=== PATIENT | male | born 1955 | race Caucasian/White ===

== ENCOUNTER → 2016-03-26 | Outpatient (CLI) | payer OTHER ==
[~2016-03-26] MED LIST: ALBU1AER9 INH; AMPH20TA2 PO; CHOL100010 PO; DIVA500T59 PO; FLUT0.15 INH; FLUT230A INH; GABA800T PO; LISI20TA3 PO; OXYC-57 PO; PANT40TA PO; ZINC100T2 PO
--- NOTE | 2016-03-26 10:17 | DIAGNOSTIC IMAGING REPORT ---
ABDOMEN ULTRASOUND FOR HERNIA CLINICAL HISTORY: Injury/strain of abdominal wall. Assess for hernia COMPARISON STUDY: None. FINDINGS: Real-time sonographic imaging of the left abdominal wall was performed. There is no hernia, mass, or fluid collection identified. IMPRESSION: No sonographic at the left abdominal wall. Electronically signed by: Keo Barnard M.D. 03/26/2016 10:15 AM
== END | disposition home or self-care (01) ==
LOC: C.ULTR 09:27
PROVIDERS: ATTEND Family Medicine
DX: S39.011A Strain of muscle, fascia and tendon of abdomen, initial encounter (principal); X58.XXXA Exposure to other specified factors, initial encounter

== ENCOUNTER → 2016-06-06 | Outpatient (CLI) | payer OTHER ==
[~2016-06-06] MED LIST changes: -OXYC-57 PO
--- NOTE | 2016-06-06 16:55 | DIAGNOSTIC IMAGING REPORT ---
RIGHT HAND MIN 3 VIEWS ROUTINE CLINICAL HISTORY: Right hand pain following trauma. COMPARISON: None FINDINGS: There is soft tissue swelling overlying the medial aspect of the right fifth metacarpal. Cortical irregularity with lucency of the distal shaft and head of the right fifth metacarpal is suggestive of an acute minimally displaced fracture. There is also suspected old fractures of the right fourth and fifth metacarpals. There is marked narrowing of the radiocarpal joint space with widening of the scapholunate interval. IMPRESSION: 1. Acute mildly displaced fracture of the distal shaft and head of the right fifth metacarpal. 2. Suspected old fractures of the right fourth and fifth metacarpals. 3. Marked narrowing of the radiocarpal joint space with widening of the scapholunate interval. Electronically signed by: Tod Kang M.D. 06/06/2016 4:54 PM Dictated Date/Time: 06/06/2016 4:52 PM
== END | disposition home or self-care (01) ==
LOC: C.RAD 16:29
PROVIDERS: ATTEND Family Medicine
DX: S62.326A Displaced fracture of shaft of fifth metacarpal bone, right hand, initial encounter for closed fracture (principal); X58.XXXA Exposure to other specified factors, initial encounter

== ENCOUNTER → 2016-06-14 | Outpatient (CLI) | payer OTHER ==
--- NOTE | 2016-06-14 10:54 | DIAGNOSTIC IMAGING REPORT ---
RIGHT HAND MIN 3 VIEWS CLINICAL HISTORY: RIGHT HAND FX Right trauma. Pain. COMPARISON: 06/06/2016 DISCUSSION: Unchanging fracture distal aspect fifth metacarpal. Evidence for old trauma again noted. No evidence of dislocation. Alignment remains anatomic. There is no evidence for soft tissue swelling. IMPRESSION: Unchanging appearance of the fracture distal fifth metacarpal. Bony alignment remains unchanged Electronically signed by: Uriel Booth M.D. 06/14/2016 10:53 AM Dictated Date/Time: 06/14/2016 10:51 AM
== END | disposition home or self-care (01) ==
LOC: C.RDSM 12:41
PROVIDERS: ATTEND Physician Assistant
DX: Z09 Encounter for follow-up examination after completed treatment for conditions other than malignant neoplasm (principal)

== ENCOUNTER → 2016-07-05 | Outpatient (CLI) | payer OTHER ==
--- NOTE | 2016-07-05 09:01 | DIAGNOSTIC IMAGING REPORT ---
RIGHT HAND MIN 3 VIEWS CLINICAL HISTORY: CLOSED FX OF RIGHT 5TH METACARPAL Right trauma. Pain. COMPARISON: 06/14/2016 DISCUSSION: Fracture distal aspect fifth metacarpal. Early periosteal reaction and callus formation. Slight increase in angulation. No evidence of dislocation. Degenerative change of all remaining osseous structures unaltered from the prior study. There is no evidence for soft tissue swelling. IMPRESSION: evidence for early healing of a fracture distal fifth metacarpal. Slight increase in angulation. Electronically signed by: Uriel Booth M.D. 07/05/2016 8:59 AM Dictated Date/Time: 07/05/2016 8:58 AM
== END | disposition home or self-care (01) ==
LOC: C.RDSM 09:00
PROVIDERS: ATTEND Physician Assistant
DX: S62.36 Nondisplaced fracture of neck of other metacarpal bone (principal); X58.XXXD Exposure to other specified factors, subsequent encounter

== ENCOUNTER → 2016-07-26 | Outpatient (CLI) | payer OTHER ==
--- NOTE | 2016-07-26 09:53 | DIAGNOSTIC IMAGING REPORT ---
RIGHT HAND MIN 3 VIEWS CLINICAL HISTORY: Right hand pain. Right fifth metacarpal fracture. COMPARISON: Right hand radiographs July 05, 2016 per FINDINGS: There has been no change in alignment of the mildly displaced and angulated fracture of the right fifth metacarpal since prior exam. Fracture line remains evident. Mild interval callus formation is noted. Intra-articular extension is noted. No additional healing fractures are noted. There is an old deformity of the right fourth metacarpal. Marked narrowing of the radiocarpal joint space is noted with widening of the scapholunate interval. This is unchanged. There may be osteopenia. IMPRESSION: No change in alignment of the healing right fifth metacarpal fracture. Electronically signed by: Tod Kang M.D. 07/26/2016 9:51 AM Dictated Date/Time: 07/26/2016 9:49 AM
== END | disposition home or self-care (01) ==
LOC: C.RDSM 14:38
PROVIDERS: ATTEND Physician Assistant
DX: S62.306D Unspecified fracture of fifth metacarpal bone, right hand, subsequent encounter for fracture with routine healing (principal); X58.XXXD Exposure to other specified factors, subsequent encounter

== ENCOUNTER → 2016-10-01 | Outpatient (CLI) | payer OTHER ==
--- NOTE | 2016-10-01 09:25 | DIAGNOSTIC IMAGING REPORT ---
RIGHT HAND MIN 3 VIEWS HISTORY:61 yearsMale[age]OSED FX OF RIGHT 5TH METACARPAL Right COMPARISON: 07/26/2016 right hand radiographs. TECHNIQUE: 3 views of the right hand. FINDINGS: There is progressive near-complete healing of the distal right fifth metacarpal. Alignment is satisfactory. The bones are moderately demineralized. 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 No acute fracture or dislocation is identified. Negative for radiopaque foreign body. IMPRESSION: Progressive near-complete healing of the previously described subacute nondisplaced distal fifth metacarpal fracture. The above report was generated using voice recognition software. It may contain grammatical, syntax or spelling errors. Electronically signed by: Boogie Barraza 10/01/2016 9:24 AM Dictated Date/Time: 10/01/2016 9:22 AM
== END | disposition home or self-care (01) ==
LOC: C.RDSM 09:15
PROVIDERS: ATTEND Physician Assistant
DX: S62.366D Nondisplaced fracture of neck of fifth metacarpal bone, right hand, subsequent encounter for fracture with routine healing (principal); X58.XXXD Exposure to other specified factors, subsequent encounter

== ENCOUNTER → 2017-02-18 | Outpatient (CLI) | payer OTHER ==
--- NOTE | 2017-02-18 10:05 | DIAGNOSTIC IMAGING REPORT ---
R FOOT MIN 3 VIEWS ROUTINE CLINICAL HISTORY: PAIN IN RIGHT HEEL pain COMPARISON: None. DISCUSSION: Moderate degenerative change first metatarsophalangeal joint. Heel spur is present. All remaining osseous structures are considered unremarkable. There is no evidence for fracture or dislocation. No abnormal periosteal reaction. There is no evidence for soft tissue swelling. IMPRESSION: 1. Small heel spur. 2. Moderate degenerative change first metatarsophalangeal joint. 3. No acute process. The above report was generated using voice recognition software. It may contain grammatical, syntax or spelling errors. Electronically signed by: Uriel Booth M.D. 02/18/2017 10:04 AM Dictated Date/Time: 02/18/2017 10:03 AM
== END | disposition home or self-care (01) ==
LOC: C.RAD1850 09:50
PROVIDERS: ATTEND Family Medicine
DX: M79.671 Pain in right foot (principal); M72.2 Plantar fascial fibromatosis

== ENCOUNTER 2020-05-31 10:26 | Inpatient (IN) ==
[2020-05-31] MEDS ORDERED: MoRPHine SULFATE 4 MG/ML 1 ML CARP\\VIAL IV STA (11:08)
[2020-05-31] MEDS ORDERED: SODIUM CHLORIDE 0.9% 1000ML 1,000 ML IV STA (11:08)
[2020-05-31] MEDS ORDERED: ONDANSETRON INJ 2 MG/ML 2 ML VIAL IV STA (11:10)
--- NOTE | 2020-05-31 11:11 | Emergency Department Note ---
ED Visit Note This patient was seen in concert with Dr. Francisco and we discussed and agreed upon the history, physical, assessment, and plan. See attending's note for details. . Resident Activity Tracking Resident Involvement: Resident Care Provided Care Provided: Adult ED
[2020-05-31] MEDS ORDERED: MoRPHine SULFATE 2 MG/ML CARP ONE (11:25)
[2020-05-31] MEDS ORDERED: AMPICILLIN/SULBACTAM SOD 3,000 MG in 0.9 % SODIUM CHLORIDE 100 ML IV STA (11:30)
--- NOTE | 2020-05-31 11:30 | Emergency Department Note ---
History of Present Illness General Chief Complaint: Abdominal Pain Stated Complaint: ABD PAIN, NAUSEA, VOMITING Time Seen by Provider: 05/31/20 10:57 Source: patient Mode of arrival: ambulatory Limitations: no limitations History of Present Illness Provider Complaint: abdominal pain Maximum Pain Intensity: 8 This is a 64-year-old male who presents to the ED with a chief complaint of abdominal pain and scrotal pain. The patient states that he had a left hydrocele [address] Sanderson in [place]. The patient states that 3 days ago he started noticing some swelling and discomfort and then subsequently currently he is complaining of abdominal pain and lower back pain. He was seen by the [facility] and sent over for evaluation. He reports associated nausea with his symptoms. Denies any vomiting. No diarrhea. No fevers. Home Medications Medication Instructions Recorded Confirmed Type albuterol sulfate 1 inh INHALATION UD PRN 10/19/19 05/31/20 History budesonide-formoterol [Symbicort] 2 puff INHALATION BID 10/19/19 05/31/20 History cholecalciferol (vitamin D3) 50 mcg PO QAM 10/19/19 05/31/20 History [Vitamin D3] diphenhydramine HCl 25 mg PO HS 10/19/19 05/31/20 History divalproex [Depakote ER] 500 mg PO HS 10/19/19 05/31/20 History flaxseed oil 1,000 mg PO QAM 10/19/19 05/31/20 History fluticasone propionate 2 spray INTRANASAL BID 10/19/19 05/31/20 History gabapentin 400 mg PO BID 10/19/19 05/31/20 History melatonin 5 mg PO HS 10/19/19 05/31/20 History pantoprazole [Protonix] 40 mg PO QAM 10/19/19 05/31/20 History trihexyphenidyl 2 mg PO HS 10/19/19 05/31/20 History zinc 50 mg PO QAM 10/19/19 05/31/20 History Kombucha 1 dose PO QAM 05/31/20 05/31/20 History cariprazine [Vraylar] 6 mg PO HS 05/31/20 05/31/20 History lisinopril 40 mg PO QAM 05/31/20 05/31/20 History psyllium husk [Metamucil] 1 tbsp PO DAILY PRN 05/31/20 05/31/20 History Allergies Allergy/AdvReac Type Severity Reaction Status Date / Time prednisone AdvReac Unknown GET Verified 05/31/20 14:17 AGGRESIVE, ANGRY Past Med/Surg History Medical History (Updated 05/31/20 @ 14:42 by Leon Francisco DO) Anxiety Asthma Bipolar disorder Fatty liver High blood pressure History of hepatitis C RESOLVED History of renal calculi KIDNEY STONE X1 History of sepsis 6 YR AGO - HAD KIDNEY STONE AT TIME AND PROSTATE INFECTION History of stomach ulcers X1 Low sodium levels CHRONIC LOW Tremor LEGS, ARMS AND HANDS...PSYCHIATRIST MANAGES TREMORS Surgical History History of arthroscopy of left knee History of carpal tunnel release of both wrists History of colonoscopy History of elbow surgery ULNAR RELEASE R &L History of tonsillectomy Social History Smoking Status: Never smoker Hx Alcohol Use: No Preferred Language: Indonesian Communication Ability: Effective 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: No Beliefs That Will Affect Care: None Current Living Situation: Spouse Feels Safe at Home: Yes Assistive Devices: Glasses Review of Systems A total of 10 systems reviewed and were otherwise negative Physical Exam Vital Signs: Vital Signs - 24 hr 05/31/20 10:35 05/31/20 12:35 05/31/20 13:54 Temperature 36.2 C L Temperature Source Temporal Artery Sc an Pulse Rate 72 Pulse Rate [Right Finger] 70 88 Respiratory Rate 20 20 20 Blood Pressure 111/76 Blood Pressure [Ri ght Arm] 158/80 H 161/93 H Blood Pressure Yodit n 87 Blood Pressure Yodit n [Right Arm] 106 115 Blood Pressure Pos ition [Right Arm] Lying Pulse Oximetry 97 97 99 Oxygen Delivery Me thod Room Air Room Air Sepsis Recent Feve r Within 48 Hours No Sepsis New/Unexpla ined Change in Men yessenia Status No Sepsis Action Take n by Nursing No Action Required Physical Exam: CONSTITUTIONAL/VITAL SIGNS: Reviewed / noted above. GENERAL: Non-toxic in appearance. INTEGUMENTARY: Warm, dry, and [place]. HEAD: Normocephalic. EYES: without scleral icterus or trauma. ENT/OROPHARYNX: clear and moist. LYMPHADENOPATHY/NECK: Is supple without lymphadenopathy or meningismus. RESPIRATORY: Lungs clear and equal. CARDIOVASCULAR: Regular rate and rhythm. GI/ABDOMEN: Soft and nontender. No organomegaly or pulsatile mass. No rebound or guarding. Normal bowel sounds. EXTREMITIES: Warm and well perfused. BACK: No CVA tenderness. NEUROLOGICAL: Intact without focal deficits. PSYCHIATRIC: normal affect. MUSCULOSKELETAL: Normally developed with good muscle tone. : There is some mild scrotal erythema. TRIAGE NURSING DOCUMENTATION REVIEWED. Course Administered Medications Discontinued Medications Sodium Chloride (Nss 1000ml) 1,000 mls @ 999 mls/hr IV .Q1H1M STA Stop: 05/31/20 12:08 Last Infusion: 05/31/20 12:40 Dose: 0 mls/hr Documented by: [id number] Admin: 05/31/20 11:38 Dose: 999 mls/hr Documented by: [id number] Ampicillin Sodium/Sulbactam Sodium 3,000 mg/ Sodium Chloride 108 mls @ 200 mls/hr IV NOW STA; Protocol Stop: 05/31/20 12:02 Last Infusion: 05/31/20 13:43 Dose: 0 mls/hr Documented by: [id number] Admin: 05/31/20 13:10 Dose: 200 mls/hr Documented by: [id number] Ioversol (Ioversol 100ml) 93 ml IV ONCE ONE Stop: 05/31/20 12:57 Last Admin: 05/31/20 12:56 Dose: 93 ml Documented by: [id number] Morphine Sulfate (Morphine Sulfate 4 Mg/Ml 1 Ml Carp\Vial) 2 mg IV NOW STA Stop: 05/31/20 11:09 Last Admin: 05/31/20 11:38 Dose: Not Given Documented by: [id number] Morphine Sulfate (Morphine Sulfate 2 Mg/Ml Carp) Confirm Administered Dose 2 mg .ROUTE .STK-MED ONE Stop: 05/31/20 11:26 Last Admin: 05/31/20 11:38 Dose: 2 mg Documented by: [id number] Morphine Sulfate (Morphine Sulfate 2 Mg/Ml Carp) 2 mg IV NOW STA Stop: 05/31/20 12:43 Last Admin: 05/31/20 12:45 Dose: 2 mg Documented by: [id number] Ondansetron HCl (Ondansetron Inj 2 Mg/Ml 2 Ml Vial) 4 mg IV NOW STA Stop: 05/31/20 11:11 Last Admin: 05/31/20 11:38 Dose: 4 mg Documented by: [id number] Medical Decision Making Differential Diagnosis Differential considered: pancreatitis, hepatitis, acute cholecystitis, AAA, UTI, pyelonephritis, kidney stones, appendicitis, diverticulitis, shingles, bowel obstruction, mesenteric ischemia, intussusception,hernia, testicular torsion, abscess or scrotal infection. Medical Records Attestation: I reviewed the patient's medical records. Home Medications Current Medication List: was personally reviewed by me Laboratory Data Attestation: I reviewed the patient's lab results. Result diagrams: 05/31/20 11:39 05/31/20 12:36 Lab Results 05/31/20 05/31/20 05/31/20 Range/Units 11:39 11:39 11:39 WBC 8.08 (4.8-10.8) K/uL RBC 4.27 L (4.7-6.1) M/uL Hgb 14.1 (14.0-18.0) g/dL Hct 37.8 L (42-52) % MCV 88.5 (80-100) fL MCH 33.0 (25-34) pg MCHC 37.3 H (32-36) g/dL Plt Count 167 (130-400) K/uL Immature Gran % (Auto) 0.4 % Neut % (Auto) 64.8 % Lymph % (Auto) 24.4 % [place] % (Auto) 9.8 % Eos % (Auto) 0.6 % Baso % (Auto) 0.0 % Neut # (Auto) 5.24 (1.4-6.5) K/uL Lymph # (Auto) 1.97 (1.2-3.4) K/uL [place] # (Auto) 0.79 H (0.11-0.59) K/uL Eos # (Auto) 0.05 (0-0.5) K/uL Baso # (Auto) 0.00 (0-0.2) K/uL Immature Gran # (Auto) 0.03 H (0.00-0.02) K/uL RBC Morphology Unremarkable PT 10.3 (9.0-12.0) Seconds INR 1.0 (0.9-1.1) Sodium 116 L* (136-145) mmol/L Potassium (3.5-5.1) mmol/L Chloride 82 L (98-107) mmol/L Carbon Dioxide 26 (21-32) mmol/L Anion Gap 9.0 (3-11) BUN 14 (7-18) mg/dl Creatinine 0.82 (0.6-1.4) mg/dl Est Cr Clr Drug Dosing 105.0 ml/min Est GFR ( Amer) 109.1 Est GFR (Non-Af Amer) 94.1 BUN/Creatinine Ratio 17.3 (10-20) Glucose 94 (70-99) mg/dl Osmolality (280-300) mOsm/kg Calcium 9.7 (8.5-10.1) mg/dl Total Bilirubin 0.9 (0.2-1) mg/dl AST (15-37) U/L ALT 28 (12-78) U/L Alkaline Phosphatase 50 (45-117) U/L Total Protein 7.7 (6.4-8.2) gm/dl Albumin 4.4 (3.4-5.0) gm/dl Globulin 3.3 (2.5-4.0) gm/dl Albumin/Globulin Ratio 1.4 (0.9-2) Lipase 110 (73-393) U/L TSH (0.300-4.500) uIu/ml Urine Color Urine Appearance (Clear) Urine pH (4.5-7.5) Ur Specific [place] (1.000-1.030) Urine Protein (Negative) Urine Glucose (UA) (Negative) Urine Ketones (Negative) Urine Blood (Negative) Urine Nitrite (Negative) Urine Bilirubin (Negative) Urine Urobilinogen (Negative) Ur Leukocyte Esterase (Negative) Urine Osmolality (500-800) mOsm/kg Ur Random Sodium mmol/L COVID-19 Eval Order SARS-CoV-2, RNA, NAAT (NEGATIVE) 05/31/20 05/31/20 05/31/20 Range/Units 12:30 12:30 12:30 WBC (4.8-10.8) K/uL RBC (4.7-6.1) M/uL Hgb (14.0-18.0) g/dL Hct (42-52) % MCV (80-100) fL MCH (25-34) pg MCHC (32-36) g/dL Plt Count (130-400) K/uL Immature Gran % (Auto) % Neut % (Auto) % Lymph % (Auto) % [place] % (Auto) % Eos % (Auto) % Baso % (Auto) % Neut # (Auto) (1.4-6.5) K/uL Lymph # (Auto) (1.2-3.4) K/uL [place] # (Auto) (0.11-0.59) K/uL Eos # (Auto) (0-0.5) K/uL Baso # (Auto) (0-0.2) K/uL Immature Gran # (Auto) (0.00-0.02) K/uL RBC Morphology PT (9.0-12.0) Seconds INR (0.9-1.1) Sodium (136-145) mmol/L Potassium (3.5-5.1) mmol/L Chloride (98-107) mmol/L Carbon Dioxide (21-32) mmol/L Anion Gap (3-11) BUN (7-18) mg/dl Creatinine (0.6-1.4) mg/dl Est Cr Clr Drug Dosing ml/min Est GFR ( Amer) Est GFR (Non-Af Amer) BUN/Creatinine Ratio (10-20) Glucose (70-99) mg/dl Osmolality (280-300) mOsm/kg Calcium (8.5-10.1) mg/dl Total Bilirubin (0.2-1) mg/dl AST (15-37) U/L ALT (12-78) U/L Alkaline Phosphatase (45-117) U/L Total Protein (6.4-8.2) gm/dl Albumin (3.4-5.0) gm/dl Globulin (2.5-4.0) gm/dl Albumin/Globulin Ratio (0.9-2) Lipase (73-393) U/L TSH (0.300-4.500) uIu/ml Urine Color Yellow Urine Appearance Clear (Clear) Urine pH 8.5 H (4.5-7.5) Ur Specific [place] 1.006 (1.000-1.030) Urine Protein Negative (Negative) Urine Glucose (UA) Negative (Negative) Urine Ketones Negative (Negative) Urine Blood Negative (Negative) Urine Nitrite Negative (Negative) Urine Bilirubin Negative (Negative) Urine Urobilinogen Negative (Negative) Ur Leukocyte Esterase Negative (Negative) Urine Osmolality 182 L (500-800) mOsm/kg Ur Random Sodium 57 mmol/L COVID-19 Eval Order SARS-CoV-2, RNA, NAAT (NEGATIVE) 05/31/20 05/31/20 05/31/20 Range/Units 12:36 12:36 12:36 WBC (4.8-10.8) K/uL RBC (4.7-6.1) M/uL Hgb (14.0-18.0) g/dL Hct (42-52) % MCV (80-100) fL MCH (25-34) pg MCHC (32-36) g/dL Plt Count (130-400) K/uL Immature Gran % (Auto) % Neut % (Auto) % Lymph % (Auto) % [place] % (Auto) % Eos % (Auto) % Baso % (Auto) % Neut # (Auto) (1.4-6.5) K/uL Lymph # (Auto) (1.2-3.4) K/uL [place] # (Auto) (0.11-0.59) K/uL Eos # (Auto) (0-0.5) K/uL Baso # (Auto) (0-0.2) K/uL Immature Gran # (Auto) (0.00-0.02) K/uL RBC Morphology PT (9.0-12.0) Seconds INR (0.9-1.1) Sodium 119 L* (136-145) mmol/L Potassium 3.0 L (3.5-5.1) mmol/L Chloride (98-107) mmol/L Carbon Dioxide (21-32) mmol/L Anion Gap (3-11) BUN (7-18) mg/dl Creatinine (0.6-1.4) mg/dl Est Cr Clr Drug Dosing ml/min Est GFR ( Amer) Est GFR (Non-Af Amer) BUN/Creatinine Ratio (10-20) Glucose (70-99) mg/dl Osmolality 252 L (280-300) mOsm/kg Calcium (8.5-10.1) mg/dl Total Bilirubin (0.2-1) mg/dl AST 27 (15-37) U/L ALT (12-78) U/L Alkaline Phosphatase (45-117) U/L Total Protein (6.4-8.2) gm/dl Albumin (3.4-5.0) gm/dl Globulin (2.5-4.0) gm/dl Albumin/Globulin Ratio (0.9-2) Lipase (73-393) U/L TSH 1.220 (0.300-4.500) uIu/ml Urine Color Urine Appearance (Clear) Urine pH (4.5-7.5) Ur Specific [place] (1.000-1.030) Urine Protein (Negative) Urine Glucose (UA) (Negative) Urine Ketones (Negative) Urine Blood (Negative) Urine Nitrite (Negative) Urine Bilirubin (Negative) Urine Urobilinogen (Negative) Ur Leukocyte Esterase (Negative) Urine Osmolality (500-800) mOsm/kg Ur Random Sodium mmol/L COVID-19 Eval Order SARS-CoV-2, RNA, NAAT (NEGATIVE) 05/31/20 05/31/20 Range/Units 13:54 13:54 WBC (4.8-10.8) K/uL RBC (4.7-6.1) M/uL Hgb (14.0-18.0) g/dL Hct (42-52) % MCV (80-100) fL MCH (25-34) pg MCHC (32-36) g/dL Plt Count (130-400) K/uL Immature Gran % (Auto) % Neut % (Auto) % Lymph % (Auto) % [place] % (Auto) % Eos % (Auto) % Baso % (Auto) % Neut # (Auto) (1.4-6.5) K/uL Lymph # (Auto) (1.2-3.4) K/uL [place] # (Auto) (0.11-0.59) K/uL Eos # (Auto) (0-0.5) K/uL Baso # (Auto) (0-0.2) K/uL Immature Gran # (Auto) (0.00-0.02) K/uL RBC Morphology PT (9.0-12.0) Seconds INR (0.9-1.1) Sodium (136-145) mmol/L Potassium (3.5-5.1) mmol/L Chloride (98-107) mmol/L Carbon Dioxide (21-32) mmol/L Anion Gap (3-11) BUN (7-18) mg/dl Creatinine (0.6-1.4) mg/dl Est Cr Clr Drug Dosing ml/min Est GFR ( Amer) Est GFR (Non-Af Amer) BUN/Creatinine Ratio (10-20) Glucose (70-99) mg/dl Osmolality (280-300) mOsm/kg Calcium (8.5-10.1) mg/dl Total Bilirubin (0.2-1) mg/dl AST (15-37) U/L ALT (12-78) U/L Alkaline Phosphatase (45-117) U/L Total Protein (6.4-8.2) gm/dl Albumin (3.4-5.0) gm/dl Globulin (2.5-4.0) gm/dl Albumin/Globulin Ratio (0.9-2) Lipase (73-393) U/L TSH (0.300-4.500) uIu/ml Urine Color Urine Appearance (Clear) Urine pH (4.5-7.5) Ur Specific [place] (1.000-1.030) Urine Protein (Negative) Urine Glucose (UA) (Negative) Urine Ketones (Negative) Urine Blood (Negative) Urine Nitrite (Negative) Urine Bilirubin (Negative) Urine Urobilinogen (Negative) Ur Leukocyte Esterase (Negative) Urine Osmolality (500-800) mOsm/kg Ur Random Sodium mmol/L COVID-19 Eval Order Covid19 IDNow [facility] SARS-CoV-2, RNA, NAAT NEGATIVE (NEGATIVE) Imaging Data Radiologist's Impression: Scrotal ultrasound:IMPRESSION: 1. Septated left-sided hydrocele has decreased in size from comparison. 2. Mild asymmetric hyperemia of the left testicle is concerning for orchitis. 3. Scrotal wall edema is likely on a postsurgical basis. Abdominal and pelvic CT:IMPRESSION: 1. A slightly thick-walled 4 cm left-sided hydrocele. This is better appreciated on the same day scrotal ultrasound. 2. Mildly distended bladder. No hydronephrosis. 3. No bowel wall thickening or obstruction. 4. Normal appendix. MDM Narrative This is a 64-year-old male who presents with scrotal discomfort as well as some generalized abdominal discomfort. His physical exam did not reveal any significant abdominal tenderness. He has associated nausea. His scrotum does show some postsurgical changes as well as some scrotal erythema as well as some mild scrotal edema. The patient was given some IV fluids and IV morphine. He states that his drove him here. The patient's sodium was low at 116, recheck was 119. His scrotal ultrasound as well as CT scan of the abdomen pelvis as noted above. There might be findings to suggest a orchitis and scrotal edema. His CBC was unremarkable. Serum osmolality was low. The patient was given some IV fluids upfront. He was given IV Zofran and IV morphine. He was given IV Unasyn for his scrotal infection. He will be seen by the hospitalist for further evaluation and care. Impression & Plan Acute hyponatremia, Acute orchitis Discharge Plan Visit Data Chief Complaint: Abdominal Pain Stated Complaint: ABD PAIN, NAUSEA, VOMITING ED Provider: Leon Francisco Discharge Problem: Acute hyponatremia, Acute orchitis Patient Disposition: Being Evaluated by Hospitalist Forms Stand Alone Forms: [facility], Virtual Emergency Department, Important Visit Information Prescriptions Prescriptions: No Action gabapentin 400 mg Capsule 400 mg PO BID RF: 0 flaxseed oil 1,000 mg Capsule 1,000 mg PO QAM RF: 0 pantoprazole [Protonix] 40 mg Tablet,Delayed Release (Dr/Ec) 40 mg PO QAM RF: 0 diphenhydramine HCl 25 mg Tablet 25 mg PO HS RF: 0 divalproex [Depakote ER] 500 mg Tablet Extended Release 24 Hr 500 mg PO HS RF: 0 zinc 50 mg Tablet 50 mg PO QAM RF: 0 albuterol sulfate 90 mcg/actuation Hfa Aerosol Inhaler 1 inh INHALATION UD PRN (Reason: ASTHMA) RF: 0 trihexyphenidyl 2 mg Tablet 2 mg PO HS RF: 0 fluticasone propionate 50 mcg/actuation Stephen,Suspension 2 spray INTRANASAL BID RF: 0 budesonide-formoterol [Symbicort] 160-4.5 mcg/actuation Hfa Aerosol Inhaler 2 puff INHALATION BID RF: 0 cholecalciferol (vitamin D3) [Vitamin D3] 50 mcg (2,000 unit) Capsule 50 mcg PO QAM RF: 0 melatonin 5 mg Capsule 5 mg PO HS RF: 0 lisinopril 40 mg tablet 40 mg PO QAM RF: 0 Metamucil 3.4 gram/5.4 gram Powder 1 tbsp PO DAILY PRN (Reason: GASTROINTESTINAL SYMPTOMS) RF: 0 Vraylar 6 mg capsule 6 mg PO HS RF: 0 Kombucha 1 dose PO QAM RF: 0 Referrals Referrals: Jarett Holley [Primary Care Provider] -
[2020-05-31 12:00] LABS: Prothrombin Time 10.3 Seconds (9.0-12.0)
[2020-05-31 12:16] LABS: Albumin Globulin Ratio 1.4 (0.9-2); Albumin Level 4.4 gm/dl (3.4-5.0); BUN Creatinine Ratio 17.3 (10-20); Bilirubin,Total 0.9 mg/dl (0.2-1); Calcium 9.7 mg/dl (8.5-10.1); Est GFR (African American) 109.1; Est GFR (Non-African American) 94.1; Globulin 3.3 gm/dl (2.5-4.0); Total Protein 7.7 gm/dl (6.4-8.2)
[2020-05-31] MEDS ORDERED: MoRPHine SULFATE 2 MG/ML CARP IV STA (12:42)
[2020-05-31 12:44] LABS: Appearance Urine Clear (Clear); Bilirubin Urine Negative (Negative); Blood Urine Negative (Negative); Color Urine Yellow; Glucose Urine UA Negative (Negative); Ketones Urine Negative (Negative); Leukocyte Esterase Urine Negative (Negative); Nitrite Urine Negative (Negative); Protein Urine Negative (Negative); Specific Gravity Urine 1.006 (1.000-1.030); Urobilinogen Urine Negative (Negative); pH Urine 8.5 (4.5-7.5)
--- NOTE | 2020-05-31 12:52 | Ultrasound Report ---
US scrotum/testicle CLINICAL HISTORY: 64 years-old Male with s/p left hydrocele removal, scrotal redness. Acute pain and swelling of the left scrotum COMPARISON STUDY: Scrotal ultrasound 02/22/2020 TECHNIQUE: Real-time, grayscale, and color Doppler sonography of the testes and scrotum is performed. Images are reviewed in the transverse and longitudinal planes. FINDINGS: RIGHT HEMISCROTUM: The right testis measures 4.4 x 3.0 x 2.2 cm and the parenchyma appears unremarkab le. No intratesticular mass is seen. Normal-appearing arterial inflow is present within the right jay ticle. The right epididymal head appears normal. No varicocele or hydrocele is identified. LEFT HEMISCROTUM: The left testis measures 3.8 x 2.3 x 2.8 cm. No intratesticular mass is seen. Arter ial inflow is documented to the left testicle. The left testicle is mildly hyperemic compared to the right. The left epididymal head appears normal. No varicocele. Septated hydrocele measures approximat [place] 4.6 x 2.5 x 3.9 cm, decreased in size from comparison where it measured approximately 10.1 x 6.2 x 6.6 cm. Subcutaneous edema with skin thickening is noted within the scrotum at the area of reported incision. No incisional fluid collection. IMPRESSION: 1. Septated left-sided hydrocele has decreased in size from comparison. 2. Mild asymmetric hyperemia of the left testicle is concerning for orchitis. 3. Scrotal wall edema is likely on a postsurgical basis. ACT 112: Negative or not required by law. The above report was generated using voice recognition software. It may contain grammatical, syntax o r spelling errors. Electronically signed by: Boogie Barraza M.D. 05/31/2020 12:50 PM
[2020-05-31] MEDS ORDERED: OPTIRAY 320 100ml IV ONE (12:56)
[2020-05-31 13:12] LABS: Eosinophils # (auto) 0.05 K/uL (0-0.5); Eosinophils % (auto) 0.6 %; Hematocrit (blood only) 37.8 % (42-52); Hemoglobin 14.1 g/dL (14.0-18.0); Immature Granulocytes # (auto) 0.03 K/uL (0.00-0.02); Immature Granulocytes % (auto) 0.4 %; Lymphocytes # (auto) 1.97 K/uL (1.2-3.4); Lymphocytes % (auto) 24.4 %; Mean Corpuscular Hgb Conc 37.3 g/dL (32-36); Mean Corpuscular Volume 88.5 fL (80-100); Monocytes # (auto) 0.79 K/uL (0.11-0.59); Monocytes % (auto) 9.8 %; Neutrophils # (auto) 5.24 K/uL (1.4-6.5); Neutrophils % (auto) 64.8 %; Platelet Count 167 K/uL (130-400); RBC Morphology Unremarkable; Red Blood Count 4.27 M/uL (4.7-6.1); White Blood Count 8.08 K/uL (4.8-10.8)
--- NOTE | 2020-05-31 13:15 | CT Scan Report ---
ABDOMEN AND PELVIS CT WITH IV CONTRAST CT DOSE: 740.38 mGy.cm HISTORY: Bilateral flank pain. scrotal pain/abd pain, s/p hydrocele repair TECHNIQUE: Multiaxial CT images of the abdomen and pelvis were performed following the use of intrave nous contrast. A dose lowering technique was utilized adhering to the principles of ALARA. COMPARISON STUDY: Scrotal ultrasound 05/31/2020. FINDINGS: The lung bases are clear. No pneumoperitoneum. No pneumatosis. No suspicious lytic or blast ic osseous lesions. There is a trace right hydrocele. There is a slightly thick-walled left hydrocele measuring 4 cm. This is better appreciated on the same day scrotal ultrasound. Small nodular focus o f enhancement within the fundus of the gallbladder. This favors a small focus of edema pneumatosis. T he main portal vein is patent. No hepatic or splenic masses. The adrenal glands are unremarkable. Nor mal pancreas. No hydronephrosis. A few subcentimeter hypodense lesions within the kidneys with the la rgest in the right upper pole measuring 12 mm. These favor cysts. No retroperitoneal lymphadenopathy. Normal caliber abdominal aorta. No pelvic lymphadenopathy. The bladder is mildly distended. No bladd er wall thickening. The prostate gland is normal in size. There is mild bilateral perinephric edema. This is likely chronic. Colonic diverticulosis. No evidence for acute diverticulitis. There is modera te well-formed stool seen within the colon. Questionable thickening at the proximal descending colon is likely due to underdistention. Otherwise, no definite bowel wall thickening or obstruction. Normal appendix. IMPRESSION: 1. A slightly thick-walled 4 cm left-sided hydrocele. This is better appreciated on the same day scro yessenia ultrasound. 2. Mildly distended bladder. No hydronephrosis. 3. No bowel wall thickening or obstruction. 4. Normal appendix. ACT 112: Negative or not required by law. Electronically signed by: Keo Barnard M.D. 05/31/2020 1:13 PM
[2020-05-31] MEDS ORDERED: POTASSIUM CHLORIDE / WTR 10 MEQ/100 ML PLCT IV STA (15:18)
[2020-05-31] MEDS ORDERED: POTASSIUM CHLORIDE CRTAB 20 MEQ TABCR PO STA ×2 (15:18→21:29)
--- NOTE | 2020-05-31 15:24 | History & Physical Report ---
Date of Service May 31, 2020 Assessment & Plan (1) Acute hyponatremia: With acute on chronic hyponatremia. Baseline sodium is 125-130 as per patient report. This is thought to be secondary to chronic psychiatric medications and is managed closely by his psychiatrist. With sodium of 116 on arrival here with symptoms of increased agitation, mild confusion, headaches. This is secondary to dehydration from nausea and vomiting and hypovolemia over the last several days with being ill due to his orchitis. There also may be some component of SIADH that is acute due to nausea and pain. -Admit to PCU -Follow serial BMP He already received 1 L of normal saline-we will give another 1 L of normal saline and follow BMP every 4 hours -His nausea and vomiting are improved now-he is encouraged to eat and drink as tolerated Okay to continue usual home medications (2) Acute orchitis: With recent left hydrocele removal surgery 2 weeks ago with [facility] urology With developing orchitis and scrotal cellulitis He is afebrile here and no leukocytosis, no evidence of sepsis, but with severe scrotal pain Continue IV morphine as needed -Continue IV Unasyn Consult urology Scrotal support and ice packs (3) Nausea & vomiting: Likely secondary to pain from orchitis Zofran as needed IV fluids (4) Hypokalemia: Likely secondary to GI losses and dehydration Replace with p.o. and IV potassium chloride Follow BMP (5) Schizoaffective disorder: Continue home medications of Depakote, gabapentin, Vraylar, melatonin for sleep, and follow-up with psychiatry as usual as an outpatient (6) Tremor: Secondary to his Vraylor Treated with trihexyphenidyl (7) History of stomach ulcers: Continue PPI, no acute issues (8) High blood pressure: Blood pressures are controlled Continue home lisinopril (9) Asthma: No acute issues Continue home Symbicort and albuterol as needed (10) Anxiety: Medications as above (11) DVT prophylaxis: Lovenox SQ Disposition-admit to PCU Full code History of Present Illness Chief Complaint: Scrotal and abdominal pain Primary Care Provider: Jarett Holley This patient is a 64-year-old male with a history of hyponatremia, schizoaffective disorder, severe anxiety and depression, asthma, HTN, PUD, secondary tremor, kidney stones, and hepatitis C treated successfully with [facility], who had a recent left hydrocele repair 2 weeks ago. He presented to the ER today with 5 days of progressively worsening scrotal pain radiating up to his left lower abdomen, with scrotal redness, with associated nausea and vomiting. He has been urinating like normal. He has not been able to eat in many days and not drinking much. He then vomited both yesterday and today. He called his urologist office who suggested that he present to the emergency room. He did not have any documented fevers at home but did feel like he was having chills. He denies any diarrhea. He has been having headaches as well and has been a little bit more confused as per both patient and his . He has had trouble focusing the last 2 days and his reports he was quite agitated at times. He reports a long history of hyponatremia and has a baseline sodium he says of 125-130. His sodium upon arrival here was 116. He had imaging studies of the abdomen and pelvis with CT scan as well as scrotal ultrasound which did show evidence of left orchitis and scrotal wall edema and a decreased size in left hydrocele compared to previous. There was no bowel wall thickening or obstruction. In the ER, he was having significant pain which was much improved by the time I saw him after receiving IV morphine x2 doses. His sodium also had improved to 119 after 1 liter of normal saline. He was also given a dose of IV Unasyn. His Covid test was negative. He will be admitted for hyponatremia, and orchitis. Allergies Allergy/AdvReac Type Severity Reaction Status Date / Time prednisone AdvReac Unknown GET Verified 05/31/20 14:17 AGGRESIVE, ANGRY Home Medications Medication Instructions Recorded Confirmed Type albuterol sulfate 1 inh INHALATION UD PRN 10/19/19 05/31/20 History budesonide-formoterol [Symbicort] 2 puff INHALATION BID 10/19/19 05/31/20 History cholecalciferol (vitamin D3) 50 mcg PO QAM 10/19/19 05/31/20 History [Vitamin D3] diphenhydramine HCl 25 mg PO HS 10/19/19 05/31/20 History divalproex [Depakote ER] 500 mg PO HS 10/19/19 05/31/20 History flaxseed oil 1,000 mg PO QAM 10/19/19 05/31/20 History fluticasone propionate 2 spray INTRANASAL BID 10/19/19 05/31/20 History gabapentin 400 mg PO BID 10/19/19 05/31/20 History melatonin 5 mg PO HS 10/19/19 05/31/20 History pantoprazole [Protonix] 40 mg PO QAM 10/19/19 05/31/20 History trihexyphenidyl 2 mg PO HS 10/19/19 05/31/20 History zinc 50 mg PO QAM 10/19/19 05/31/20 History Kombucha 1 dose PO QAM 05/31/20 05/31/20 History cariprazine [Vraylar] 6 mg PO HS 05/31/20 05/31/20 History lisinopril 40 mg PO QAM 05/31/20 05/31/20 History psyllium husk [Metamucil] 1 tbsp PO DAILY PRN 05/31/20 05/31/20 History Past Med/Surg History Medical History Anxiety Asthma Bipolar disorder Fatty liver High blood pressure History of hepatitis C RESOLVED History of renal calculi KIDNEY STONE X1 History of sepsis 6 YR AGO - HAD KIDNEY STONE AT TIME AND PROSTATE INFECTION History of stomach ulcers X1 Low sodium levels CHRONIC LOW Schizoaffective disorder Tremor LEGS, ARMS AND HANDS...PSYCHIATRIST MANAGES TREMORS Surgical History History of arthroscopy of left knee History of carpal tunnel release of both wrists History of colonoscopy History of elbow surgery ULNAR RELEASE R &L History of tonsillectomy Family History Father Migraine Mother Dementia Social History Smoking Status: Never smoker Do You Dip or Chew Tobacco: No; Hx Alcohol Use: No (History of heavy alcohol use, sober since 2009) Hx Substance Use: No Preferred Language: Bangladeshi Communication Ability: Effective Gun Stocker Required: No Beliefs That Will Affect Care: None marital status: Current Living Situation: Spouse Other Information That Helps Us Care for You: No Feels Safe at Home: Yes Safety Concerns: Feels Safe At This Time Assistive Devices: Glasses Review of Systems Review of Systems: All systems reviewed & are unremarkable except as noted in HPI & below Denies chest pain or shortness of breath No difficulty with urination Physical Exam Constitutional: WD/WN, vitals as above Eyes: PERRL, conjunctivae normal, anicteric sclerae ENMT: external ear and nose normal, oropharynx normal Neck: trachea midline, no thyromegaly Respiratory: normal respiratory effort, lungs clear to auscultation Cardiovascular: RRR, no murmur, no edema Chest (Breasts): Chest: normal inspection of chest Gastrointestinal (Abdomen): normal bowel sounds, soft, nontender, no hepatosplenomegaly Musculoskeletal: Extremities: extremities normal to inspection; no cyanosis and no clubbing Skin: + erythema (Of scrotum) Neurologic: moves all extremities and awake; no focal motor deficits Psychiatric: A+Ox3, euthymic affect Genitourinary: + scrotum abnormality (Mild edema, significant erythema throughout scrotum left greater than right); no penis abnormality Positive exquisite tenderness to palpation of the left testicle, incision on scrotum with scant amount of purulent drainage expressed Lymphatic: no lymphedema Results & Data Results & [facility] ([facility]) Vital Signs (Past 12 Hours) Vital Signs Temp Pulse Pulse Resp BP BP Pulse Ox 05/31/20 13:54 88 20 161/93 H 99 05/31/20 12:35 70 20 158/80 H 97 05/31/20 10:35 36.2 C L 72 20 111/76 97 Laboratory Results Laboratory results reviewed Diagnostic Findings US scrotum/testicle CLINICAL HISTORY: 64 years-old Male with s/p left hydrocele removal, scrotal redness. Acute pain and swelling of the left scrotum COMPARISON STUDY: Scrotal ultrasound 02/22/2020 TECHNIQUE: Real-time, grayscale, and color Doppler sonography of the testes and scrotum is performed. Images are reviewed in the transverse and longitudinal planes. FINDINGS: RIGHT HEMISCROTUM: The right testis measures 4.4 x 3.0 x 2.2 cm and the parenchyma appears unremarkable. No intratesticular mass is seen. Normal- appearing arterial inflow is present within the right testicle. The right epididymal head appears normal. No varicocele or hydrocele is identified. LEFT HEMISCROTUM: The left testis measures 3.8 x 2.3 x 2.8 cm. No intratesticular mass is seen. Arterial inflow is documented to the left testicle. The left testicle is mildly hyperemic compared to the right. The left epididymal head appears normal. No varicocele. Septated hydrocele measures approximately 4.6 x 2.5 x 3.9 cm, decreased in size from comparison where it measured approximately 10.1 x 6.2 x 6.6 cm. Subcutaneous edema with skin thickening is noted within the scrotum at the area of reported incision. No incisional fluid collection. IMPRESSION: 1. Septated left-sided hydrocele has decreased in size from comparison. 2. Mild asymmetric hyperemia of the left testicle is concerning for orchitis. 3. Scrotal wall edema is likely on a postsurgical basis. ABDOMEN AND PELVIS CT WITH IV CONTRAST CT DOSE: 740.38 mGy.cm HISTORY: Bilateral flank pain. scrotal pain/abd pain, s/p hydrocele repair TECHNIQUE: Multiaxial CT images of the abdomen and pelvis were performed following the use of intravenous contrast. A dose lowering technique was utilized adhering to the principles of ALARA. COMPARISON STUDY: Scrotal ultrasound 05/31/2020. FINDINGS: The lung bases are clear. No pneumoperitoneum. No pneumatosis. No suspicious lytic or blastic osseous lesions. There is a trace right hydrocele. There is a slightly thick-walled left hydrocele measuring 4 cm. This is better appreciated on the same day scrotal ultrasound. Small nodular focus of enhancement within the fundus of the gallbladder. This favors a small focus of edema pneumatosis. The main portal vein is patent. No hepatic or splenic masses. The adrenal glands are unremarkable. Normal pancreas. No hydronephrosis. A few subcentimeter hypodense lesions within the kidneys with the largest in the right upper pole measuring 12 mm. These favor cysts. No retroperitoneal lymphadenopathy. Normal caliber abdominal aorta. No pelvic lymphadenopathy. The bladder is mildly distended. No bladder wall thickening. The prostate gland is normal in size. There is mild bilateral perinephric edema. This is likely chronic. Colonic diverticulosis. No evidence for acute diverticulitis. There is moderate well-formed stool seen within the colon. Questionable thickening at the proximal descending colon is likely due to underdistention. Otherwise, no definite bowel wall thickening or obstruction. Normal appendix. IMPRESSION: 1. A slightly thick-walled 4 cm left-sided hydrocele. This is better appreciated on the same day scrotal ultrasound. 2. Mildly distended bladder. No hydronephrosis. 3. No bowel wall thickening or obstruction. 4. Normal appendix. Code Status & VTE Plan Code Status Full code VTE Prophylaxis Plan VTE Prophylaxis will be ordered: Yes PG Care Time/CCT Total # of Minutes Spent Total Time Spent with Patient: Total time spent is greater than 50% in coordination of care (as documented) at patient's floor/unit and/or counseling patient: Coding Level of Care Code 49996 Initial Inpt Care Lvl 3 Diagnoses Acute hyponatremia E87.1 Acute orchitis N45.2 Nausea & vomiting R11.2 Hypokalemia E87.6 Schizoaffective disorder F25.9 Tremor R25.1 History of stomach ulcers Z87.19 High blood pressure I10 Asthma J45.909 Anxiety F41.9 DVT prophylaxis Z29.9
[2020-05-31] MEDS ORDERED: SODIUM CHLORIDE 0.9% 1000ML 1,000 ML IV SCH (15:30)
[2020-05-31 16:04] LABS: BUN Creatinine Ratio 12.7 (10-20); Creatinine Clr Calc Pharmacy 95.7 ml/min; Est GFR (Non-African American) 90.6
[2020-05-31] MEDS ORDERED: POLYETHYLENE (MIRALAX) 17 GM PACK PO PRN (17:18)
[2020-05-31] MEDS ORDERED: ALBUTEROL HFA 8 GM INHALER INH PRN (17:18)
[2020-05-31] MEDS ORDERED: ONDANSETRON INJ 2 MG/ML 2 ML VIAL IV PRN (17:18)
[2020-05-31] MEDS: MoRPHine SULFATE 2 MG/ML CARP IV PRN ×2 (17:47→20:56)
[2020-05-31] MEDS: AMPICILLIN/SULBACTAM SOD 3,000 MG in 0.9 % SODIUM CHLORIDE 100 ML IV SCH ×2 (18:49→20:42)
--- NOTE | 2020-05-31 19:47 | Urology Consultation ---
Date of Consultation May 31, 2020 Assessment & Plan (1) Acute orchitis: Patient likely has acute orchitis on a postoperative basis. Recommend the following: The patient has arterial flow to both testicles and there is no evidence of abscess there is no indication for surgical intervention Supportive care with analgesics, scrotal elevation and support, and perhaps as needed ice packs should be employed. As patient is afebrile without leukocytosis and there is no evidence of any purulent drainage from his surgical incision there is no clear indication for antibiotics. Upon discharge patient should follow with his urologist at [facility] for further care. Remainder of plan as directed by the primary service History of Present Illness Reason for Consultation: Orchitis Attending Physician: Antoinette Hdz MD History of Present Illness This is a 64-year-old male who presented to the [facility] emergency department secondary to scrotal pain. Patient notes that approximately 2 weeks ago he underwent a left hydrocele excision by urologist at [facility]. Patient says he had greater than 250 cc of clear fluid drained at time of surgery and he did have a drain placed and was discharged home with this drain. 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 He does note that prior to removal the drain was draining some serosanguineous fluid. Following drain removal the patient was initially doing well however over the past 5 days he has noted some worsening scrotal pain, back pain, nausea, and vomiting. He notes that this is gotten pr ogressively worse to the point where it was unbearable so he presented to the emergency department. He denies any cough, fevers, shakes, chills. He denies any dysuria. He denies any drainage from his urethra. He denies any drainage from his surgical site. In the emergency department the patient did have a scrotal ultrasound which demonstrated arterial flow to both testicles. Scrotal edema was noted but this was felt to be postsurgical in nature. There is also some hyperemia noted of the left testicle concerning for colitis. He was noted to have a septated left hydrocele but this was felt to be smaller than what was noted on previous studies. Patient also underwent a CT scan of the abdomen and pelvis which did not demonstrate any findings that were not identified on the previously noted ultrasound. Labs included a Covid test which was negative. A CBC showed no leukocytosis. His hemoglobin and platelet count were noted to be normal. The patient was noted be hyponatremic and hypokalemic with levels of 116 and 3.0 respectively. His BUN and creatinine were noted to both be within normal range. Urinalysis was performed and was not indicative of infection. Since admission the patient has been given analgesics and he has been placed on empiric antibiotics. At the time of my interview he was resting comfortably in bed his pain appeared to be well controlled and he was in no distress. Allergies Allergy/AdvReac Type Severity Reaction Status Date / Time prednisone AdvReac Unknown GET Verified 05/31/20 14:17 AGGRESIVE, ANGRY Home Medications Medication Instructions Recorded Confirmed Type albuterol sulfate 1 inh INHALATION UD PRN 10/19/19 05/31/20 History budesonide-formoterol [Symbicort] 2 puff INHALATION BID 10/19/19 05/31/20 History cholecalciferol (vitamin D3) 50 mcg PO QAM 10/19/19 05/31/20 History [Vitamin D3] diphenhydramine HCl 25 mg PO HS 10/19/19 05/31/20 History divalproex [Depakote ER] 500 mg PO HS 10/19/19 05/31/20 History flaxseed oil 1,000 mg PO QAM 10/19/19 05/31/20 History fluticasone propionate 2 spray INTRANASAL BID 10/19/19 05/31/20 History gabapentin 400 mg PO BID 10/19/19 05/31/20 History melatonin 5 mg PO HS 10/19/19 05/31/20 History pantoprazole [Protonix] 40 mg PO QAM 10/19/19 05/31/20 History trihexyphenidyl 2 mg PO HS 10/19/19 05/31/20 History zinc 50 mg PO QAM 10/19/19 05/31/20 History Kombucha 1 dose PO QAM 05/31/20 05/31/20 History cariprazine [Vraylar] 6 mg PO HS 05/31/20 05/31/20 History lisinopril 40 mg PO QAM 05/31/20 05/31/20 History psyllium husk [Metamucil] 1 tbsp PO DAILY PRN 05/31/20 05/31/20 History Patient History Medical History Anxiety Asthma Bipolar disorder Fatty liver High blood pressure History of hepatitis C RESOLVED History of renal calculi KIDNEY STONE X1 History of sepsis 6 YR AGO - HAD KIDNEY STONE AT TIME AND PROSTATE INFECTION History of stomach ulcers X1 Low sodium levels CHRONIC LOW Schizoaffective disorder Tremor LEGS, ARMS AND HANDS...PSYCHIATRIST MANAGES TREMORS Surgical History History of arthroscopy of left knee History of carpal tunnel release of both wrists History of colonoscopy History of elbow surgery ULNAR RELEASE R &L History of tonsillectomy Family History Father Migraine Mother Dementia Social History Smoking Status: Never smoker Do You Dip or Chew Tobacco: No; Hx Alcohol Use: No (History of heavy alcohol use, sober since 2009) Hx Substance Use: No Preferred Language: Irish Communication Ability: Effective Skate Boarder Required: No Beliefs That Will Affect Care: None marital status: Current Living Situation: Spouse Other Information That Helps Us Care for You: No Feels Safe at Home: Yes Safety Concerns: Feels Safe At This Time Assistive Devices: Glasses Review of Systems Constitutional: no fever and no chills Respiratory: no cough and no dyspnea Cardiovascular: no chest pain Gastrointestinal: + abdominal pain (Lower abdomen), + nausea and + vomiting Genitourinary: + testicle pain (Left testicle); no dysuria, no urinary hesitancy and no penile discharge Musculoskeletal: + back pain Integumentary: no rash Physical Exam Constitutional: well developed and well nourished; no acute distress Respiratory: normal respiratory effort; no respiratory distress and no labored breathing Gastrointestinal (Abdomen): Percussion/Palpation: abdomen soft; abdomen nontender Abdomen is soft nontender nondistended. There is no pain with palpation Genitourinary: Patient's genital region was examined. The patient had a circumscribed penis. There is no discharge noted. There is mild scrotal edema with a small amount of scrotal erythema. The incision from his previously excised left hydrocele is healing well. There is no drainage or discharge. No areas of eschar were noted. I did not appreciate any masses on palpation. The patient was having minimal pain at the time of my exam and elevation of the scrotum did not provide much in the way of symptomatic relief (although he was lying in bed) Results & Data ([facility]) Vital Signs (Past 12 Hours) Vital Signs Temp Pulse Pulse Resp BP BP Pulse Ox 05/31/20 13:54 88 20 161/93 H 99 05/31/20 12:35 70 20 158/80 H 97 05/31/20 10:35 36.2 C L 72 20 111/76 97 PG Care Time/CCT Total # of Minutes Spent Total Time Spent with Patient: Total time spent is greater than 50% in coordination of care (as documented) at patient's floor/unit and/or counseling patient: Coding Level of Care Code 70587 Inpt Consult Level 3 Diagnoses Acute orchitis N45.2
[2020-05-31] MEDS: MELATONIN 3 MG TAB PO SCH (20:42)
[2020-05-31] MEDS: GABAPENTIN 400 MG CAP PO SCH (20:43)
[2020-05-31] MEDS: DIVALPROEX EXTENDED RELEASE 500 MG TAB PO SCH (20:43)
[2020-05-31] MEDS: TRIHEXYPHENIDYL HCL 2 MG TAB PO SCH (20:43)
[2020-05-31] MEDS: diphenhydrAMINE Capsule 25 MG CAP PO SCH (20:43)
[2020-05-31] MEDS: FLUTICASONE PROPIONATE NA SPR 16 GM BTL NAE SCH (20:44)
[2020-05-31] MEDS: ENOXAPARIN INJ 40 MG/0.4 ML SYR SQ SCH (20:44)
[2020-05-31 21:19] LABS: BUN Creatinine Ratio 12.8 (10-20); Calcium 8.8 mg/dl (8.5-10.1); Creatinine Clr Calc Pharmacy 87.9 ml/min; Est GFR (African American) 94.7; Est GFR (Non-African American) 81.7; Potassium 3.2 mmol/L (3.5-5.1)
[2020-06-01] MEDS: MoRPHine SULFATE 2 MG/ML CARP IV PRN ×3 (00:23→14:30)
[2020-06-01 01:33] LABS: BUN Creatinine Ratio 14.5 (10-20); Calcium 8.8 mg/dl (8.5-10.1); Creatinine Clr Calc Pharmacy 94.7 ml/min; Est GFR (African American) 103.6; Est GFR (Non-African American) 89.4; Potassium 3.5 mmol/L (3.5-5.1)
[2020-06-01] MEDS: AMPICILLIN/SULBACTAM SOD 3,000 MG in 0.9 % SODIUM CHLORIDE 100 ML IV SCH ×4 (04:50→21:18)
[2020-06-01 04:59] LABS: Basophils # (auto) 0.01 K/uL (0-0.2); Basophils % (auto) 0.2 %; Eosinophils % (auto) 1.8 %; Hematocrit (blood only) 34.9 % (42-52); Immature Granulocytes # (auto) 0.02 K/uL (0.00-0.02); Immature Granulocytes % (auto) 0.4 %; Lymphocytes # (auto) 1.86 K/uL (1.2-3.4); Lymphocytes % (auto) 33.9 %; Mean Corpuscular Hemoglobin 33.8 pg (25-34); Mean Corpuscular Hgb Conc 37.2 g/dL (32-36); Mean Corpuscular Volume 90.6 fL (80-100); Mean Platelet Volume 10.1 fL (7.4-10.4); Monocytes # (auto) 0.64 K/uL (0.11-0.59); Monocytes % (auto) 11.7 %; Neutrophils # (auto) 2.85 K/uL (1.4-6.5); Platelet Count 170 K/uL (130-400); RDW Coefficient of Variation 12.7 % (11.5-14.5); RDW Standard Deviation 41.8 fL (36.4-46.3); Red Blood Count 3.85 M/uL (4.7-6.1); White Blood Count 5.48 K/uL (4.8-10.8)
[2020-06-01 05:15] LABS: Albumin Level 3.5 gm/dl (3.4-5.0); BUN Creatinine Ratio 16.6 (10-20); Calcium 8.4 mg/dl (8.5-10.1); Creatinine Clr Calc Pharmacy 107.7 ml/min; Est GFR (African American) 110.2; Est GFR (Non-African American) 95.1; Magnesium 1.9 mg/dl (1.8-2.4); Potassium 3.9 mmol/L (3.5-5.1)
[2020-06-01 05:23] LABS: Albumin Globulin Ratio 1.4 (0.9-2); Bilirubin,Total 0.5 mg/dl (0.2-1); Globulin 2.5 gm/dl (2.5-4.0)
[2020-06-01] MEDS: CHOLECALCIFEROL 1,000 UNITS 25 MCG TAB PO SCH (08:34)
[2020-06-01] MEDS: FLUTICASONE/VILANTEROL 200/25MCG 14 PUFFS/INHALER INH SCH (08:34)
[2020-06-01] MEDS: lisinopril 40 MG TAB PO SCH (08:35)
[2020-06-01] MEDS: ZINC SULFATE 220 MG CAPSULE PO SCH (08:35)
[2020-06-01] MEDS: PANTOprazole 40 MG TAB PO SCH (08:36)
[2020-06-01] MEDS: FLUTICASONE PROPIONATE NA SPR 16 GM BTL NAE SCH ×2 (08:36→21:20)
[2020-06-01] MEDS: GABAPENTIN 400 MG CAP PO SCH ×2 (08:36→21:21)
[2020-06-01 08:40] LABS: BUN Creatinine Ratio 14.6 (10-20); Creatinine Clr Calc Pharmacy 91.1 ml/min; Est GFR (African American) 100.9; Est GFR (Non-African American) 87.1; Potassium 3.8 mmol/L (3.5-5.1)
[2020-06-01] MEDS ORDERED: NON-FORMULARY MEDICATION (Flaxseed Oil 1,000 mg Capsule) PO SCH (09:00)
--- NOTE | 2020-06-01 09:01 | Urology Progress Note ---
Date of Service June 01, 2020 Assessment & Plan (1) Acute orchitis: Hyponatremia; orchitis - s/p left hydrocelectomy several weeks ago through the [facility] - initial recovery went well before developement of pain - now with inflammatory orchitis - no outward signs of infection, but he is receiving empiric antibiotics (continue for 10 days total) and is gradually improving - I recommend continuing all supportive care including the abx - anticipate a gradual recovery over the next 10-14 days - has follow up scheduled with his [facility] [address] [facility] surgeon - please call if further questions or issues during this hospitalization Admission and Anticipated Discharge Date Admission Date: May 31, 2020 Subjective Subjectively improved this AM - started to have scrotal/left testicular/perineal pain around 1 week ago - initially with minimal pain after his surgery - no clear inciting event (no trauma, etc) to trigger the onset of pain - no fevers -no chills - skin appearance and swelling have simply been improving Na was 116 on arrival, now 130 no leukocytosis Physical Exam Physical Exam: healthy appearing scrotum with minimal swelling testis firm and edematous, but mild scrotal wall swelling no erythema incisions appropriate no drainage no crepitus or fluctuance Constitutional: well developed and well nourished Neck: neck nontender Respiratory: normal respiratory effort; no respiratory distress and does not use accessory muscles Cardiovascular: Rate/Rhythm: regular rate Vessels: radial pulses present Extremities: no edema Gastrointestinal (Abdomen): Inspection/Auscultation: abdomen normal to insp ection Percussion/Palpation: abdomen soft; abdomen nontender and no guarding Musculoskeletal: Head/Neck/Chest: normocephalic and head atraumatic Extremities: extremities normal to inspection Skin: no rashes and no lesions Trauma: no evidence of skin trauma Neurologic: awake; not obtunded Speech / Cognition: normal speech Motor/Sensory: no tremor Psychiatric: Orientation: alert and oriented x 3 Genitourinary: no CVA tenderness Lymphatic: no lymphadenopathy Results & Data ([facility]) Vital Signs (Past 12 Hours) Vital Signs Temp Pulse Resp BP Pulse Ox 06/01/20 07:58 37.0 C 67 18 159/80 H 99 06/01/20 03:23 36.9 C 63 18 127/79 97 05/31/20 23:04 37.1 C 57 L 19 134/79 97 PG Care Time/CCT Total # of Minutes Spent Total Time Spent with Patient: Total time spent is greater than 50% in coordination of care (as documented) at patient's floor/unit and/or counseling patient: Coding Level of Care Code 08753 Subseq Hosp Care Lvl 2 Diagnoses Acute orchitis N45.2
[2020-06-01 12:24] LABS: BUN Creatinine Ratio 17.2 (10-20); Calcium 9.2 mg/dl (8.5-10.1); Creatinine Clr Calc Pharmacy 98.5 ml/min; Est GFR (Non-African American) 92.3; Potassium 4.1 mmol/L (3.5-5.1)
[2020-06-01 16:12] LABS: BUN Creatinine Ratio 15.7 (10-20); Calcium 9.1 mg/dl (8.5-10.1); Creatinine Clr Calc Pharmacy 93.1 ml/min; Est GFR (African American) 103.6; Est GFR (Non-African American) 89.4; Potassium 3.9 mmol/L (3.5-5.1)
[2020-06-01 20:37] LABS: BUN Creatinine Ratio 16.6 (10-20); Calcium 9.2 mg/dl (8.5-10.1); Creatinine Clr Calc Pharmacy 97.4 ml/min; Est GFR (African American) 106.5; Est GFR (Non-African American) 91.9
[2020-06-01] MEDS: MELATONIN 3 MG TAB PO SCH (21:19)
[2020-06-01] MEDS: ENOXAPARIN INJ 40 MG/0.4 ML SYR SQ SCH (21:19)
[2020-06-01] MEDS: TRIHEXYPHENIDYL HCL 2 MG TAB PO SCH (21:21)
[2020-06-01] MEDS: diphenhydrAMINE Capsule 25 MG CAP PO SCH (21:22)
[2020-06-01] MEDS: DIVALPROEX EXTENDED RELEASE 500 MG TAB PO SCH (21:22)
[2020-06-01] MEDS: CARIPRAZINE HCL 6 MG PO SCH (21:23)
--- NOTE | 2020-06-01 21:54 | Hospitalist Progress Note ---
Date of Service June 01, 2020 Assessment & Plan (1) Acute hyponatremia: With acute on chronic hyponatremia. Baseline sodium is 125-130 as per patient report. This is thought to be secondary to chronic psychiatric medications and is managed closely by his psychiatrist. With sodium of 116 on arrival here with symptoms of increased agitation, mild confusion, headaches. This is secondary to dehydration from nausea and vomiting and hypovolemia over the last several days with being ill due to his orchitis. There also may be some component of SIADH that is acute due to nausea and pain. -Admit to PCU -Follow serial BMP Sodium has improved, will continue to monitor sodium. Okay to continue usual home medications (2) Acute orchitis: With recent left hydrocele removal surgery 2 weeks ago with [facility] urology With developing orchitis and scrotal cellulitis He is afebrile here and no leukocytosis, no evidence of sepsis, but with severe scrotal pain Continue IV morphine as needed -Continue IV Unasyn Consult urology: may consider transitioning to PO ANTIBIOTICS. Scrotal support and ice packs (3) Nausea & vomiting: Likely secondary to pain from orchitis Zofran as needed IV fluids (4) Hypokalemia: Likely secondary to GI losses and dehydration Replaced. will monitor (5) Schizoaffective disorder: Continue home medications of Depakote, gabapentin, Vraylar, melatonin for sleep, and follow-up with psychiatry as usual as an outpatient (6) Tremor: Secondary to his Vraylor Treated with trihexyphenidyl (7) History of stomach ulcers: Continue PPI, no acute issues (8) High blood pressure: Blood pressures are controlled Continue home lisinopril (9) Asthma: No acute issues Continue home Symbicort and albuterol as needed (10) Anxiety: Medications as above (11) DVT prophylaxis: Lovenox SQ Disposition-admit to PCU Full code Admission and Anticipated Discharge Date Admission Date: May 31, 2020 Subjective Patient reports feeling well. He has no new complaints. Continues to have discomfort around his testicles. Review of Systems Review of Systems: All systems reviewed & are unremarkable except as noted in HPI & below Physical Exam Physical Exam: Constitutional: WD/WN, vitals as above Eyes: PERRL, conjunctivae normal, anicteric sclerae ENMT: external ear and nose normal, oropharynx normal Neck: trachea midline, no thyromegaly Respiratory: normal respiratory effort, lungs clear to auscultation Cardiovascular: RRR, no murmur, no edema Chest (Breasts): Chest: normal inspection of chest Gastrointestinal (Abdomen): normal bowel sounds, soft, nontender, no hepatosplenomegaly Musculoskeletal: Extremities: extremities normal to inspection; no cyanosis and no clubbing Skin: + erythema (Of scrotum) Neurologic: moves all extremities and awake; no focal motor deficits Psychiatric: A+Ox3, euthymic affect Genitourinary: + scrotum abnormality (Mild edema, moderate erythema throughout scrotum left greater than right); no penis abnormality Positive exquisite tenderness to palpation of the left testicle, incision on scrotum with scant amount of purulent drainage expressed Lymphatic: no lymphedema Results & Data Results & Data ([facility]) Vital Signs (Past 12 Hours) Vital Signs Temp Pulse Resp BP Pulse Ox 06/01/20 11:03 36.7 C 63 18 102/61 94 PG Care Time/CCT Total # of Minutes Spent Total Time Spent with Patient: Total time spent is greater than 50% in coordination of care (as documented) at patient's floor/unit and/or counseling patient: Coding Level of Care Code 11871 Subseq Hosp Care Lvl 3 Diagnoses Acute hyponatremia E87.1 Acute orchitis N45.2 Nausea & vomiting R11.2 Hypokalemia E87.6 Schizoaffective disorder F25.9 Tremor R25.1 History of stomach ulcers Z87.19 High blood pressure I10 Asthma J45.909 Anxiety F41.9 DVT prophylaxis Z29.9
[2020-06-02] MEDS: AMPICILLIN/SULBACTAM SOD 3,000 MG in 0.9 % SODIUM CHLORIDE 100 ML IV SCH ×4 (04:59→21:01)
[2020-06-02] MEDS: FLUTICASONE PROPIONATE NA SPR 16 GM BTL NAE SCH ×2 (09:02→20:54)
[2020-06-02] MEDS: FLUTICASONE/VILANTEROL 200/25MCG 14 PUFFS/INHALER INH SCH (09:02)
[2020-06-02] MEDS: lisinopril 40 MG TAB PO SCH (09:03)
[2020-06-02] MEDS: GABAPENTIN 400 MG CAP PO SCH ×2 (09:03→20:55)
[2020-06-02] MEDS: ZINC SULFATE 220 MG CAPSULE PO SCH (09:03)
[2020-06-02] MEDS: PANTOprazole 40 MG TAB PO SCH (09:03)
[2020-06-02] MEDS: CHOLECALCIFEROL 1,000 UNITS 25 MCG TAB PO SCH (09:03)
[2020-06-02] MEDS: ACETAMINOPHEN 325 MG TAB PO PRN (13:42)
--- NOTE | 2020-06-02 20:37 | Hospitalist Progress Note ---
Date of Service June 02, 2020 Assessment & Plan (1) Acute hyponatremia: With acute on chronic hyponatremia. Baseline sodium is 125-130 as per patient report. This is thought to be secondary to chronic psychiatric medications and is managed closely by his psychiatrist. With sodium of 116 on arrival here with symptoms of increased agitation, mild confusion, headaches. This is secondary to dehydration from nausea and vomiting and hypovolemia over the last several days with being ill due to his orchitis. There also may be some component of SIADH that is acute due to nausea and pain. -Admit to PCU -Follow serial BMP Sodium has improved, will continue to monitor sodium. Okay to continue usual home medications At 129 which is his baseline. (2) Acute orchitis: With recent left hydrocele removal surgery 2 weeks ago with [facility] urology With developing orchitis and scrotal cellulitis He is afebrile here and no leukocytosis, no evidence of sepsis, but with severe scrotal pain Continue IV morphine as needed -Continue IV Unasyn Consult urology: may consider transitioning to PO ANTIBIOTICS at discharge. Scrotal support and ice packs (3) Nausea & vomiting: Likely secondary to pain from orchitis Zofran as needed IV fluids (4) Hypokalemia: Likely secondary to GI losses and dehydration Replaced. will monitor (5) Schizoaffective disorder: Continue home medications of Depakote, gabapentin, Vraylar, melatonin for sleep, and follow-up with psychiatry as usual as an outpatient (6) Tremor: Secondary to his Vraylor Treated with trihexyphenidyl (7) History of stomach ulcers: Continue PPI, no acute issues (8) High blood pressure: Blood pressures are controlled Continue home lisinopril (9) Asthma: No acute issues Continue home Symbicort and albuterol as needed (10) Anxiety: Medications as above (11) DVT prophylaxis: Lovenox SQ Disposition-admit to PCU Full code Admission and Anticipated Discharge Date Admission Date: May 31, 2020 Subjective Patient reports feeling better. He has no new complaints. Updated family. Review of Systems Review of Systems: All systems reviewed & are unremarkable except as noted in HPI & below Physical Exam Physical Exam: Constitutional: WD/WN, vitals as above Eyes: PERRL, conjunctivae normal, anicteric sclerae ENMT: external ear and nose normal, oropharynx normal Neck: trachea midline, no thyromegaly Respiratory: normal respiratory effort, lungs clear to auscultation Cardiovascular: RRR, no murmur, no edema Chest (Breasts): Chest: normal inspection of chest Gastrointestinal (Abdomen): normal bowel sounds, soft, nontender, no hepatosplenomegaly Musculoskeletal: Extremities: extremities normal to inspection; no cyanosis and no clubbing Skin: + erythema (Of scrotum) Neurologic: moves all extremities and awake; no focal motor deficits Psychiatric: A+Ox3, euthymic affect Genitourinary: + scrotum abnormality (Mild edema, moderate erythema throughout scrotum left greater than right); no penis abnormality Results & Data Results & Data ([facility]) Vital Signs (Past 12 Hours) Vital Signs Temp Pulse Resp BP Pulse Ox 06/02/20 15:34 37 C 74 18 171/82 H 96 PG Care Time/CCT Total # of Minutes Spent Total Time Spent with Patient: Total time spent is greater than 50% in coordination of care (as documented) at patient's floor/unit and/or counseling patient: Coding Level of Care Code 90318 Subseq Hosp Care Lvl 3 Diagnoses Acute hyponatremia E87.1 Acute orchitis N45.2 Nausea & vomiting R11.2 Hypokalemia E87.6 Schizoaffective disorder F25.9 Tremor R25.1 History of stomach ulcers Z87.19 High blood pressure I10 Asthma J45.909 Anxiety F41.9 DVT prophylaxis Z29.9 Time Spent (min) 35
[2020-06-02] MEDS: ENOXAPARIN INJ 40 MG/0.4 ML SYR SQ SCH ×2 (20:54→21:03)
[2020-06-02] MEDS: MELATONIN 3 MG TAB PO SCH (20:54)
[2020-06-02] MEDS: DIVALPROEX EXTENDED RELEASE 500 MG TAB PO SCH (20:55)
[2020-06-02] MEDS: TRIHEXYPHENIDYL HCL 2 MG TAB PO SCH (20:56)
[2020-06-02] MEDS: CARIPRAZINE HCL 6 MG PO SCH (20:56)
[2020-06-02] MEDS: diphenhydrAMINE Capsule 25 MG CAP PO SCH (20:59)
[2020-06-03] MEDS: ACETAMINOPHEN 325 MG TAB PO PRN (02:36)
[2020-06-03] MEDS: AMPICILLIN/SULBACTAM SOD 3,000 MG in 0.9 % SODIUM CHLORIDE 100 ML IV SCH ×2 (04:12→11:00)
[2020-06-03] MEDS: ZINC SULFATE 220 MG CAPSULE PO SCH (07:57)
[2020-06-03] MEDS: lisinopril 40 MG TAB PO SCH (07:58)
[2020-06-03] MEDS: PANTOprazole 40 MG TAB PO SCH (07:58)
[2020-06-03] MEDS: CHOLECALCIFEROL 1,000 UNITS 25 MCG TAB PO SCH (07:58)
[2020-06-03] MEDS: FLUTICASONE/VILANTEROL 200/25MCG 14 PUFFS/INHALER INH SCH (07:59)
[2020-06-03] MEDS: FLUTICASONE PROPIONATE NA SPR 16 GM BTL NAE SCH (07:59)
[2020-06-03] MEDS: GABAPENTIN 400 MG CAP PO SCH (07:59)
--- NOTE | 2020-06-09 22:15 | Discharge Summary ---
Date of Service June 03, 2020 Admission HPI Per Admitting Provider This patient is a 64-year-old male with a history of hyponatremia, schizoaffective disorder, severe anxiety and depression, asthma, HTN, PUD, secondary tremor, kidney stones, and hepatitis C treated successfully with Marquis rvoni, who had a recent left hydrocele repair 2 weeks ago. He presented to the ER today with 5 days of progressively worsening scrotal pain radiating up to his left lower abdomen, with scrotal redness, with associated nausea and vomiting. He has been urinating like normal. He has not been able to eat in many days and not drinking much. He then vomited both yesterday and today. He called his rologist office who suggested that he present to the emergency room. He did not have any documented fevers at home but did feel like he was having chills. He denies any diarrhea. He has been having headaches as well and has been a little bit more confused as per both patient and his . He has had trouble focusing the last 2 days and his reports he was quite agitated at times. He reports a long history of hyponatremia and has a baseline sodium he says of 125-130. His sodium upon arrival here was 116. He had imaging studies of the abdomen and pelvis with CT scan as well as scrotal ultrasound which did show evidence of left orchitis and scrotal wall edema and a decreased size in left hydrocele compared to previous. There was no bowel wall thickening or obstruction. In the ER, he was having significant pain which was much improved by the time I saw him after receiving IV morphine x2 doses. His sodium also had improved to 119 after 1 liter of normal saline. He was also given a dose of IV Unasyn. His Covid test was negative. He will be admitted for hyponatremia, and orchitis. Principal Diagnosis acute orchitis Discharge Exam Constitutional: WD/WN, vitals as above Eyes: PERRL, conjunctivae normal, anicteric sclerae ENMT: external ear and nose normal, oropharynx normal Neck: trachea midline, no thyromegaly Respiratory: normal respiratory effort, lungs clear to auscultation Cardiovascular: RRR, no murmur, no edema Chest (Breasts): Chest: normal inspection of chest Gastrointestinal (Abdomen): normal bowel sounds, soft, nontender, no hepatosplenomegaly Musculoskeletal: Extremities: extremities normal to inspection; no cyanosis and no clubbing Skin: + decreased erythema (Of scrotum) Neurologic: moves all extremities and awake; no focal motor deficits Psychiatric: A+Ox3, euthymic affect Genitourinary: + scrotum abnormality (Mild edema, moderate erythema throughout scrotum left greater than right); no penis abnormality Discharge Data Allergies Allergy/AdvReac Type Severity Reaction Status Date / Time prednisone AdvReac Unknown GET Verified 05/31/20 14:17 AGGRESIVE, ANGRY Consultations 05/31/20 14:03 ED Decision to Admit Stat 05/31/20 15:18 Consult Urology Routine Ordered Studies 05/31/20 11:08 CT abd pelvis IV con only Stat 05/31/20 11:10 US scrotum/testicle Stat Hospital Course (1) Acute hyponatremia: With acute on chronic hyponatremia. Baseline sodium is 125-130 as per patient report. This is thought to be secondary to chronic psychiatric medications and is managed closely by his psychiatrist. With sodium of 116 on arrival here with symptoms of increased agitation, mild confusion, headaches. This is secondary to dehydration from nausea and vomiting and hypovolemia over the last several days with being ill due to his orchitis. There also may be some component of SIADH that is acute due to nausea and pain. -Admit to PCU Sodium has improved, at his baseline. Okay to continue usual home medications (2) Acute orchitis: With recent left hydrocele removal surgery 2 weeks ago with [facility] urology With developing orchitis and scrotal cellulitis He is afebrile here and no leukocytosis, no evidence of sepsis, but with severe scrotal pain Continue IV morphine as needed -Continue IV Unasyn Consult urology: may consider transitioning to PO ANTIBIOTICS at discharge. will discharge on doxycycline (3) Nausea & vomiting: Likely secondary to pain from orchitis Zofran as needed IV fluids (4) Hypokalemia: Likely secondary to GI losses and dehydration Replaced. will monitor (5) Schizoaffective disorder: Continue home medications of Depakote, gabapentin, Vraylar, melatonin for sleep, and follow-up with psychiatry as usual as an outpatient (6) Tremor: Secondary to his Vraylor Treated with trihexyphenidyl (7) History of stomach ulcers: Continue PPI, no acute issues (8) High blood pressure: Blood pressures are controlled Continue home lisinopril (9) Asthma: No acute issues Continue home Symbicort and albuterol as needed (10) Anxiety: Medications as above (11) DVT prophylaxis: Lovenox SQ Total Time Total Time Spent Total Time Spent (In Minutes): 32 Total Time Includes: Examination of the Patient, Discharge Planning and Medication Reconciliation Discharge Plan Discharge Items Patient Disposition: Home - Self-Care Reason For Visit: Orchitis, Hyponatremia Discharge Diagnosis: orchitis Activity: Resume your previous activity Non-emergency contact: Primary Care Provider Call non-emergency contact if: you have any medication questions Follow-up/Referrals: Jarett Holley [Primary Care Provider] - Diet: Regular Addtl Attending Provider Instructions: You have been hospitalized for an acute medical problem. During your stay at [facility], we have made an effort to correct the problem that brought you to the hospital while keeping you as comfortable as possible. Medications were used to bring your condition under control and your discharge instructions will include directions for any medications you should take after leaving the hospital. Please make sure you see your Primary Care Provider as part of your follow up plan. Followup with urology as an outpatient Followup with PCP in 1-2 weeks. hold zinc until antibiotic is completed Pending Studies at Discharge: No Stand-Alone Forms: [facility], Smoking Cessation Medications and DC Order Prescriptions: New doxycycline hyclate 100 mg capsule 100 mg PO BID 7 Days Qty: 14 RF: 0 Continued gabapentin 400 mg Capsule 400 mg PO BID RF: 0 flaxseed oil 1,000 mg Capsule 1,000 mg PO QAM RF: 0 pantoprazole [Protonix] 40 mg Tablet,Delayed Release (Dr/Ec) 40 mg PO QAM RF: 0 diphenhydramine HCl 25 mg Tablet 25 mg PO HS RF: 0 divalproex [Depakote ER] 500 mg Tablet Extended Release 24 Hr 500 mg PO HS RF: 0 albuterol sulfate 90 mcg/actuation Hfa Aerosol Inhaler 1 inh INHALATION UD PRN (Reason: ASTHMA) RF: 0 trihexyphenidyl 2 mg Tablet 2 mg PO HS RF: 0 fluticasone propionate 50 mcg/actuation [place],Suspension 2 spray INTRANASAL BID RF: 0 budesonide-formoterol [Symbicort] 160-4.5 mcg/actuation Hfa Aerosol Inhaler 2 puff INHALATION BID RF: 0 cholecalciferol (vitamin D3) [Vitamin D3] 50 mcg (2,000 unit) Capsule 50 mcg PO QAM RF: 0 melatonin 5 mg Capsule 5 mg PO HS RF: 0 lisinopril 40 mg tablet 40 mg PO QAM RF: 0 Metamucil 3.4 gram/5.4 gram Powder 1 tbsp PO DAILY PRN (Reason: GASTROINTESTINAL SYMPTOMS) RF: 0 Vraylar 6 mg capsule 6 mg PO HS RF: 0 Kombucha 1 dose PO QAM RF: 0 Discontinued zinc 50 mg Tablet 50 mg PO QAM RF: 0 Discharge Orders: Discharge Order (Routine); Ordered 06/03/20 Ordered By: River Chen Admission Data Admit Date/Time: 05/31/20 15:23 Attending Provider: River Chen Admit Provider: Antoinette Hdz Primary Care Provider: Jarett Holley Other Providers: Pardeep Sidhu Other Interventions: Discharge Summary Assessment (RN) Last Done: 06/03/20 12:42 Coding Level of Care Code D/C Day Management >30 mins Diagnoses Acute hyponatremia E87.1 Acute orchitis N45.2 Nausea & vomiting R11.2 Hypokalemia E87.6 Schizoaffective disorder F25.9 Tremor R25.1 History of stomach ulcers Z87.19 High blood pressure I10 Asthma J45.909 Anxiety F41.9 DVT prophylaxis Z29.9
== END 2020-06-03 13:40 | disposition home or self-care (01) | DRG 728 ==
LOC: ED 10:26 → 2S 15:23 → SUATTDRO 15:23 → 2S 16:47 → 2N 06-01 13:39

== ENCOUNTER 2023-03-10 12:07 | Inpatient (IN) ==
--- NOTE | 2023-03-10 12:29 | Emergency Department Note ---
Impression & Plan Acute GI bleeding, Symptomatic anemia ED Provider Note NAME: ANY FAIRCHILD AGE: 67 SEX: M : 1955 ARRIVES VIA: Ambulance INFORMANT: Patient ED PROVIDER(S): Daniel Owens DO CHIEF COMPLAINT: Dark blood per rectum HPI: Patient is a 67-year-old male who presents to the ER with a past medical history of asthma, tardive dyskinesia, schizoaffective disorder for dark blood per rectum. This occurred 4-5 times today. He does feel lightheaded. Denies any headache or change in vision. No chest pain or shortness of breath. No nausea or vomiting. Denies any dysuria, urgency, or frequency. No belly pain. No blood thinners. He has been taking NSAIDs at night for neck pain. He denies any steroid use. ADDITIONAL HISTORY OBTAINED: Per HPI Chronic Medical/Social Conditions Affecting Care: Per HPI PAST MEDICAL HISTORY:See Below PAST SURGICAL HISTORY:See Below FAMILY HISTORY:See Below SOCIAL HISTORY:See Below HOME MEDICATIONS:See Below ALLERGIES:See Below VITALS:See Below PHYSICAL EXAMINATION: GENERAL: Sitting up in bed, alert, well appearing, well nourished, no distress, non-toxic EYE EXAM: normal conjunctiva. OROPHARYNX: no exudate, no erythema, lips, buccal mucosa, and tongue normal and mucous membranes are moist NECK: supple, no nuchal rigidity, no adenopathy, non-tender LUNGS: Clear to auscultation. Normal chest wall mechanics HEART: no murmurs, S1 normal and S2 normal ABDOMEN: abdomen soft, non-tender, normo-active bowel sounds, no masses, no rebound or guarding. RECTAL: Dark blood per rectum UPPER EXTREMITIES: upper extremities are grossly normal. LOWER EXTREMITIES: No pitting edema. NEURO EXAM: Normal sensorium, cranial nerves II-XII grossly intact, normal speech, no gross weakness of arms, no gross weakness of legs. MEDICAL DECISION MAKING: Patient is a 67-year-old male who presents ER for dark blood per rectum for the past 24 hours. IV was established blood was obtained. Initially patient was fairly tachycardic. Was given IV fluids. Heart rate trended down. IV was established blood work is obtained. Labs show mild leukocytosis of 12,000. Hemoglobin is down to 6.7 from baseline of 10-12. INR unremarkable. Denies any blood thinners. BUN elevated at 36. LFTs bilirubin was unremarkable. Rectal shows dark blood. Patient was typed and crossed and ordered 2 units of PRBCs while in the ER. Heart rate trended down to the 80s. Patient was updated bedside. Again a completely benign abdomen. Discussed case with the hospitalist for further evaluation management treatment. Consults/Care Managements Discussions: Per MDM Triage Nursing notes reviewed. Limited review of prior medical records performed Vital Signs: reviewed and remarkable for tachy Differential diagnosis: Diverticulosis, AVM, coagulopathy, colitis, inflammatory bowel disease, malignancy, Doris-Lambert tear, esophagitis, peptic ulcer disease, variceal bleed, gastritis, epistaxis, fissure, hemorrhoids, as well as other pathologies. ER treatment provided: See below Diagnostics interpreted by me include EKG and cardiac monitoring as listed below: -Cardiac Monitoring: An order was placed for continuous cardiac monitoring. The monitor shows a rate of 117 with sinus rhythm. -ECG: Sinus tachycardia rate of 112 Normal axis No PVCs QTc 447 -Laboratory studies:Interpreted by me as stated above in MDM and shown below. Imaging studies: Xrays: As interpreted by me: Portable AP upright 1 view of the chest shows no focal infiltrate CTs show: none Procedures:none Critical Care: I have personally spent 32 minutes of critical care time in the direct management of this patient. This includes bedside care, interpretation of diagnostic studies, and testing, discussion with consultants, patient, and family members, and other required patient management activities. This 32 minutes is in excess of all separately billable procedures. Past Med/Surg History Medical History Anemia Asthma DVT prophylaxis Fatty liver History of basal cell carcinoma History of hepatitis C History of renal calculi History of sepsis History of stomach ulcers Hx of migraines Hx of prostatitis Hx of urethral stricture Hypertension Low sodium levels Medical marijuana use Parkinson's syndrome Schizoaffective disorder Seasonal allergies Tremor Surgical History H/O hemorrhoidectomy H/O right inguinal hernia repair (04/11/22) History of anesthesia reaction History of arthroscopy of left knee History of carpal tunnel release of both wrists History of cataract surgery History of colonoscopy History of cystoscopy History of elbow surgery History of esophagogastroduodenoscopy (EGD) History of hydrocelectomy History of tonsillectomy [place] teeth removed Family History Father Migraine Hypertension Mother Dementia Hypertension Grandmother Colorectal cancer Social History Smoking Status: Never smoker Second Hand Exposure: Yes ( A CHILD); Do You Dip or Chew Tobacco: No; Hx Alcohol Use: No (History of heavy alcohol use, sober since 2008) Hx Substance Use: No Preferred Language: Occitan Communication Ability: Effective Visual Impairment: No Limitations Awning Erector Required: No Beliefs That Will Affect Care: None marital status: Current Living Situation: Spouse current occupational status: retired Feels Safe at Home: Yes Diet: regular during the past year weight has: decreased > 10 lbs Assistive Devices: Glasses Allergies Allergies Allergy/AdvReac Type Severity Reaction Status Date / Time prednisone AdvReac Intermediate GET Verified 03/10/23 13:43 AGGRESIVE, ANGRY Home Meds Home Medications Medication Instructions Recorded Confirmed budesonide-formoterol HFA 160 2 puff inhalation BID 10/19/19 03/10/23 mcg-4.5 mcg/actuation aerosol inhaler (Symbicort) diphenhydramine HCl 25 mg tablet 25 mg PO HS 10/19/19 03/10/23 melatonin 5 mg capsule 5 mg PO HS 10/19/19 03/10/23 pantoprazole 40 mg tablet,delayed 40 mg PO QAM 10/19/19 03/10/23 release (Protonix) fluticasone propionate 50 1 spray intranasal BID 09/01/21 03/10/23 mcg/actuation nasal spray,suspension lurasidone 80 mg tablet (Latuda) 80 mg PO QPM 09/01/21 03/10/23 medical marijuana 1 dose PO UD PRN ANXIETY AND SLEEP 09/01/21 03/10/23 tamsulosin 0.4 mg capsule 0.4 mg PO QPM 09/01/21 03/10/23 cholecalciferol (vitamin D3) 50 50 mcg PO QAM 03/27/22 03/10/23 mcg (2,000 unit) tablet (Vitamin D3) lisinopril 40 mg tablet 40 mg PO QAM 03/27/22 03/10/23 lithium carbonate 300 mg tablet 300 mg PO HS 03/27/22 03/10/23 zinc 50 mg tablet 50 mg PO QAM 03/27/22 03/10/23 hydrochlorothiazide 12.5 mg capsule 12.5 mg PO QAM 03/10/23 03/10/23 Previous Rx's Medication Instructions Recorded carbidopa 25 mg-levodopa 100 mg 1 tab PO TID 90 days #270 tabs 02/20/23 tablet trihexyphenidyl 2 mg tablet 1 mg (1/2 x 2 mg) PO DAILY #45 tabs 02/20/23 Results & Data (ED) Vital Signs Vital Signs - 24 hr 03/10/23 12:07 03/10/23 12:17 03/10/23 12:21 Temperature 36.9 C Temperature Source Oral Pulse Rate 135 H 134 H 134 H Pulse Rate from SpO2 Sensor Pulse Rhythm Regular Respiratory Rate 20 20 Respiratory Effort / Characteristics Non-Labored Respiratory Depth Normal Respiratory Pattern Regular Blood Pressure 121/73 Blood Pressure Mean 89 Pulse Oximetry 100 100 Oxygen Delivery Method Room Air Room Air Sepsis Recent Fever Within 48 Hours No Sepsis New/Unexplained Change in Mental Status N/A Sepsis Action Taken by Nursing No Action Required 03/10/23 12:30 03/10/23 13:00 03/10/23 13:30 Temperature Temperature Source Pulse Rate 103 H 93 H 99 H Pulse Rate from SpO2 Sensor 102 H 93 H Pulse Rhythm Respiratory Rate 17 17 13 Respiratory Effort / Characteristics Respiratory Depth Respiratory Pattern Blood Pressure 135/67 119/57 L 91/61 L Blood Pressure Mean 89 77 71 Pulse Oximetry 98 100 Oxygen Delivery Method Sepsis Recent Fever Within 48 Hours Sepsis New/Unexplained Change in Mental Status Sepsis Action Taken by Nursing 03/10/23 14:00 03/10/23 14:08 03/10/23 14:15 Temperature 37 C Temperature Source Oral Pulse Rate 96 H 99 H 100 H Pulse Rate from SpO2 Sensor 97 H 100 H Pulse Rhythm Respiratory Rate 17 47 H 15 Respiratory Effort / Characteristics Respiratory Depth Respiratory Pattern Blood Pressure 125/67 125/67 125/65 Blood Pressure Mean 86 86 85 Pulse Oximetry 98 99 98 Oxygen Delivery Method Sepsis Recent Fever Within 48 Hours Sepsis New/Unexplained Change in Mental Status Sepsis Action Taken by Nursing 03/10/23 14:30 03/10/23 14:45 Temperature 37.4 C 37.2 C Temperature Source Oral Oral Pulse Rate 100 H 99 H Pulse Rate from SpO2 Sensor Pulse Rhythm Respiratory Rate 15 19 Respiratory Effort / Characteristics Respiratory Depth Respiratory Pattern Blood Pressure 129/64 107/55 L Blood Pressure Mean 85 72 Pulse Oximetry 99 98 Oxygen Delivery Method Sepsis Recent Fever Within 48 Hours Sepsis New/Unexplained Change in Mental Status Sepsis Action Taken by Nursing Laboratory Data 03/10/23 12:21 03/10/23 12:21 Lab Results 03/10/23 03/10/23 03/10/23 Range/Units 12:17 12: 12:52 WBC 12.08 H (4.8-10.8) K/ul RBC 1.94 L (4.70-6.10) M/uL Hgb 6.7 L* (14.0-18.0) g/dl Hct 19.7 L* (42.0-52.0) % MCV 101.5 H (80.0-100.0) fL MCH 34.5 H (25.0-34.0) pg MCHC 34.0 (32.0-36.0) g/dL RDW Std Deviation 49.1 H (36.4-46.3) fL RDW Coeff of Levar 13.3 (11.5-14.5) % Plt Count 168 (130-400) K/uL MPV 12.6 H (9.4-12.4) fL Immature Gran % (Auto) 0.6 % Neut % (Auto) 90.7 % Lymph % (Auto) 5.0 % [place] % (Auto) 3.6 % Eos % (Auto) 0.0 % Baso % (Auto) 0.1 % Reticulocyte % (Auto) 2.7 H (0.5-2.0) % Neut # (Auto) 10.96 H (1.40-6.50) K/uL Lymph # (Auto) 0.61 L (1.20-3.40) K/uL [place] # (Auto) 0.43 (0.11-0.59) K/uL Eos # (Auto) 0.00 (0.00-0.50) K/uL Baso # (Auto) 0.01 (0.00-0.20) K/uL Reticulocyte # 0.05 (0.02-0.10) 10^6/uL Immature Gran # (Auto) 0.07 (0.01-0.20) K/uL Ovalocytes 1+ PT 12.0 (9.0-12.0) Seconds INR 1.1 (0.9-1.1) APTT 22 (21-31) Seconds PTT Ratio 0.8 Sodium 136 (136-145) mmol/L Potassium 4.7 (3.5-5.1) mmol/L Chloride 102 (98-107) mmol/L Carbon Dioxide 22 (21-32) mmol/L Anion Gap 12 H (3-11) BUN 36 H (6-23) mg/dl Creatinine 1.28 (0.6-1.4) mg/dl Est Cr Clr Drug Dosing 63.9 ml/min Est GFR ( Amer) 67.1 ml/min Est GFR (Non-Af Amer) 57.9 ml/min BUN/Creatinine Ratio 28.1 H (10-20) Glucose 171 H (70-99(Fasting)) mg/dl Calcium 8.7 (8.6-10.3) mg/dl Iron 105 (35-175) mcg/dl TIBC 272 (250-450) mcg/dl Unsaturated IBC 167 (155-355) mcg/dl Transferrin % Sat 39 (20-50) % Ferritin 42.0 (8-388) ng/ml Total Bilirubin 0.7 (0.2-1.0) mg/dl AST 24 (13-39) U/L ALT 22 (7-52) U/L Alkaline Phosphatase 130 H (34-104) U/L Lactate Dehydrogenase 145 (86-244) U/L Troponin I High Sens 9.6 (0-20) pg/ml Total Protein 5.8 L (6.0-8.3) gm/dl Albumin 3.5 (3.4-5.0) gm/dl Globulin 2.3 L (2.5-4.0) gm/dl Albumin/Globulin Ratio 1.5 (0.9-2) Vitamin B12 416 (180-914) pg/ml Folate 10.36 (>5.38) ng/ml POC Stool Occult Blood Positive A (Negative) Blood Type O Positive Blood Type Recheck O Positive Antibody Screen NEGATIVE Crossmatch See Detail Administered Medications Pantoprazole Sodium 40 mg/ (Dextrose) 100 mls @ 20 mls/hr IV Q5H CAIN Stop: 01/16/24 13:44 Last Admin: 03/10/23 14:20 Dose: 8 mg/hr, 20 mls/hr Documented By: MARTY Discontinued Medications Pantoprazole Sodium 80 mg/ (Dextrose) 120 mls @ 400 mls/hr IV NOW ONE Stop: 03/10/23 13:36 Last Infusion: 03/10/23 14:00 Dose: Infused Documented By: Admin: 03/10/23 13:42 Dose: 400 mls/hr Documented By: ALEA Sodium Chloride (Nss) 1,000 mls @ 999 mls/hr IV .Q1H1M ONE Stop: 03/10/23 14:20 Last Admin: 03/10/23 13:44 Dose: Not Given Documented By: MARTY Pantoprazole Sodium (Pantoprazole Bolus/Drip) 1 each IV NOW STA Stop: 03/10/23 13:20 Last Admin: 03/10/23 14:22 Dose: Not Given Documented By: MARTY Imaging Data Radiologist's Impression: Chest X-Ray 03/10/23 13:28 SINGLE VIEW CHEST CLINICAL HISTORY: Dyspnea FINDINGS: An AP, portable, upright chest radiograph is compared to study dated 03/22/2022. The cardiomediastinal silhouette is unremarkable. Chronic interstitial thickening is similar to previous. The lungs and pleural spaces are clear. No pneumothorax is seen. There are chronic/healed right-sided rib fractures. IMPRESSION: No active disease in the chest. ACT 112: Negative or not required by law. Electronically signed by: Jassi Whtaley M.D. 03/10/2023 1:45 PM Discharge Plan Visit Data Chief Complaint: GI Assessment ED Provider: Daniel Owens Discharge Problem: Acute GI bleeding, Symptomatic anemia Forms Stand Alone Forms: My [facility] [employer] Prescriptions Prescriptions: No Action tamsulosin 0.4 mg capsule 0.4 mg PO QPM Latuda 80 mg tablet 80 mg PO QPM medical marijuana 1 dose PO UD PRN (Reason: ANXIETY AND SLEEP) Patient Comments: PT STATES DOES VAPE/PO FORM carbidopa-levodopa 25-100 mg tablet 1 tab PO TID 90 Days Qty: 270 1RF trihexyphenidyl 2 mg tablet 1 mg PO DAILY Qty: 45 1RF Rx Instructions: give with food (meal/snack) pantoprazole [Protonix] 40 mg Tablet,Delayed Release (Dr/Ec) 40 mg PO QAM diphenhydramine HCl 25 mg Tablet 25 mg PO HS budesonide-formoterol [Symbicort] 160-4.5 mcg/actuation Hfa Aerosol Inhaler 2 puff INHALATION BID melatonin 5 mg Capsule 5 mg PO HS fluticasone propionate 50 mcg/actuation spray,suspension 1 spray INTRANASAL BID Patient Comments: EACH NOSTRIL hydrochlorothiazide 12.5 mg capsule 12.5 mg PO QAM zinc 50 mg Tablet 50 mg PO QAM lisinopril 40 mg Tablet 40 mg PO QAM lithium carbonate 300 mg Tablet 300 mg PO HS cholecalciferol (vitamin D3) [Vitamin D3] 50 mcg (2,000 unit) Tablet 50 mcg PO QAM Referrals Referrals: Jarett Holley [Primary Care Provider] -
[2023-03-10 12:53] LABS: Albumin Globulin Ratio 1.5 (0.9-2); Albumin Level 3.5 gm/dl (3.4-5.0); BUN Creatinine Ratio 28.1 (10-20); Bilirubin,Total 0.7 mg/dl (0.2-1.0); Calcium 8.7 mg/dl (8.6-10.3); Creatinine Clr Calc Pharmacy 63.9 ml/min; Est GFR (African American) 67.1 ml/min; Est GFR (Non-African American) 57.9 ml/min; Globulin 2.3 gm/dl (2.5-4.0); Potassium 4.7 mmol/L (3.5-5.1); Total Protein 5.8 gm/dl (6.0-8.3)
[2023-03-10 13:08] LABS: INR 1.1 (0.9-1.1); Partial Thromboplastin Ratio 0.8; Partial Thromboplastin Time 22 Seconds (21-31)
[2023-03-10 13:12] LABS: Hematocrit (blood only) 19.7 % (42.0-52.0); Hemoglobin 6.7 g/dl (14.0-18.0); Mean Corpuscular Hemoglobin 34.5 pg (25.0-34.0); Mean Corpuscular Volume 101.5 fL (80.0-100.0); Mean Platelet Volume 12.6 fL (9.4-12.4); Platelet Count 168 K/uL (130-400); RDW Coefficient of Variation 13.3 % (11.5-14.5); RDW Standard Deviation 49.1 fL (36.4-46.3); Red Blood Count 1.94 M/uL (4.70-6.10); White Blood Count 12.08 K/ul (4.8-10.8)
[2023-03-10 13:13] LABS: Basophils # (auto) 0.01 K/uL (0.00-0.20); Basophils % (auto) 0.1 %; Immature Granulocytes # (auto) 0.07 K/uL (0.01-0.20); Immature Granulocytes % (auto) 0.6 %; Lymphocytes # (auto) 0.61 K/uL (1.20-3.40); Monocytes # (auto) 0.43 K/uL (0.11-0.59); Monocytes % (auto) 3.6 %; Neutrophils # (auto) 10.96 K/uL (1.40-6.50); Neutrophils % (auto) 90.7 %; Ovalocytes 1+
[2023-03-10] MEDS ORDERED: SODIUM CHLORIDE 0.9% 250 ML IV PRN ×3 (13:18→21:45)
[2023-03-10] MEDS ORDERED: PANTOPRAZOLE BOLUS/DRIP IV STA (13:19)
[2023-03-10] MEDS ORDERED: PANTOprazole 80 MG in DEXTROSE 5% 100 ML IV ONE (13:19)
[2023-03-10] MEDS ORDERED: SODIUM CHLORIDE 0.9% 1,000 ML IV ONE (13:20)
[2023-03-10 13:43] LABS: Reticulocyte % 2.7 % (0.5-2.0); Reticulocytes # 0.05 10^6/uL (0.02-0.10)
--- NOTE | 2023-03-10 13:46 | XRay Report ---
SINGLE VIEW CHEST CLINICAL HISTORY: Dyspnea FINDINGS: An AP, portable, upright chest radiograph is compared to study dated 03/22/2022. The cardio mediastinal silhouette is unremarkable. Chronic interstitial thickening is similar to previous. The l ungs and pleural spaces are clear. No pneumothorax is seen. There are chronic/healed right-sided rib fractures. IMPRESSION: No active disease in the chest. ACT 112: Negative or not required by law. Electronically signed by: Jassi Whatley M.D. 03/10/2023 1:45 PM
--- NOTE | 2023-03-10 13:51 | History & Physical Report ---
Date of Service March 10, 2023 Assessment & Plan (1) Acute blood loss anemia: Plan: Hemoglobin 6.7 on admission from previous baseline 12.8 in February 2022 (1 year ago) Suspect from acute GI bleed (see below) Hemoglobin q.6 hourly Transfuse 2 units packed red blood cells and repeat Hgb (2) Acute GI bleeding: Plan: Concerning GI bleed given acuity of history and he is already taking pantoprazo le 40 mg p.o. 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: Plan: Continue Artuda and Sinemet when ok to take PO meds (6) Asthma: Plan: No acute exacerbation Continue outpatient maintenance inhalers (7) Schizoaffective disorder: Plan: Continue [place] and Latuda [place] level in AM Plan VTE prophylaxis - chemical contraindicated in the setting of acute GI bleed Diet - NPO Disposition - admit to PCU Admission and Anticipated Discharge Date Admission Date: March 10, 2023 History of Present Illness Chief Complaint: Melena Primary Care Provider: Jarett Holley Hugo Dowd is a 67-year-old male with history of gastric ulcer who presents to the ER via ALS from home due to dark, tarry stools x 4 since midnight. Associated nausea, dizziness, diaphoresis and shortness of breath last night. He reports ongoing lightheadedness even while just lying in bed. No current abdominal pain although he did note lower abdominal pain on palpation earlier but none currently. He feels his mouth is dry as not had any liquids since 10 'o' clock. He reports taking ibuprofen for the last few days but only once a day for neck stiffness. He reports taking his pantoprazole consistently. He did not take his morning medications due to coming to the ER but took all his usual medications last night. Only new medication change has been his hydrochlorothiazide was reduced from 25 -> 12.5mg by his physical therapy instructor due to low blood pressure last month. Allergies Allergy/AdvReac Type Severity Reaction Status Date / Time prednisone AdvReac Intermediate GET Verified 03/10/23 13:43 AGGRESIVE, ANGRY Home Medications Medication Instructions Recorded Confirmed Type budesonide-formoterol HFA 160 2 puff inhalation BID 10/19/19 03/10/23 History mcg-4.5 mcg/actuation aerosol inhaler (Symbicort) diphenhydramine HCl 25 mg tablet 25 mg PO HS 10/19/19 03/10/23 History melatonin 5 mg capsule 5 mg PO HS 10/19/19 03/10/23 History pantoprazole 40 mg tablet,delayed 40 mg PO QAM 10/19/19 03/10/23 History release (Protonix) fluticasone propionate 50 1 spray intranasal BID 09/01/21 03/10/23 History mcg/actuation nasal spray,suspension lurasidone 80 mg tablet (Latuda) 80 mg PO QPM 09/01/21 03/10/23 History medical marijuana 1 dose PO UD PRN ANXIETY AND SLEEP 09/01/21 03/10/23 History tamsulosin 0.4 mg capsule 0.4 mg PO QPM 09/01/21 03/10/23 History cholecalciferol (vitamin D3) 50 50 mcg PO QAM 03/27/22 03/10/23 History mcg (2,000 unit) tablet (Vitamin D3) lisinopril 40 mg tablet 40 mg PO QAM 03/27/22 03/10/23 History lithium carbonate 300 mg tablet 300 mg PO HS 03/27/22 03/10/23 History zinc 50 mg tablet 50 mg PO QAM 03/27/22 03/10/23 History carbidopa 25 mg-levodopa 100 mg 1 tab PO TID 90 days #270 tabs 02/20/23 03/10/23 Rx tablet trihexyphenidyl 2 mg tablet 1 mg (1/2 x 2 mg) PO DAILY #45 tabs 02/20/23 03/10/23 Rx hydrochlorothiazide 12.5 mg capsule 12.5 mg PO QAM 03/10/23 03/10/23 History Past Med/Surg History Medical History Anemia Asthma DVT prophylaxis Fatty liver History of basal cell carcinoma History of hepatitis C History of renal calculi History of sepsis History of stomach ulcers Hx of migraines Hx of prostatitis Hx of urethral stricture Hypertension Low sodium levels Medical marijuana use Parkinson's syndrome Schizoaffective disorder Seasonal allergies Tremor Surgical History H/O hemorrhoidectomy H/O right inguinal hernia repair (04/11/22) History of anesthesia reaction History of arthroscopy of left knee History of carpal tunnel release of both wrists History of cataract surgery History of colonoscopy History of cystoscopy History of elbow surgery History of esophagogastroduodenoscopy (EGD) History of hydrocelectomy History of tonsillectomy [place] teeth removed Family History Father Migraine Hypertension Mother Dementia Hypertension Grandmother Colorectal cancer Social History Smoking Status: Never smoker Second Hand Exposure: Yes ( A CHILD); Do You Dip or Chew Tobacco: No; Hx Alcohol Use: No Hx Substance Use: Yes Last Used Substance: Days (ago) Last Used Substance Other:: 03/09/23 medical marijuana Substance Use Type Other:: MEDICAL MARIJUANA DIRECTED Preferred Language: Japanese Communication Ability: Effective Visual Impairment: No Limitations Thread Milling Machine Set Up Operator Required: No Beliefs That Will Affect Care: None marital status: Current Living Situation: Spouse current occupational status: retired Other Information That Helps Us Care for You: No Feels Safe at Home: Yes Safety Concerns: Feels Safe At This Time Diet: regular during the past year weight has: decreased > 10 lbs Assistive Devices: Glasses Review of Systems Review of Systems: All systems reviewed & are unremarkable except as noted in HPI & below Physical Exam Constitutional: WD/WN, vitals as above Eyes: PERRL, conjunctivae normal, anicteric sclerae ENMT: external ear and nose normal, oropharynx normal Respiratory: normal respiratory effort, lungs clear to auscultation Cardiovascular: Rate/Rhythm: regular rhythm and + tachycardic Heart Sounds: no murmur Gastrointestinal (Abdomen): normal bowel sounds, soft, nontender, no hepatosplenomegaly Musculoskeletal: no cyanosis or clubbing, extremities motor strength 5/5 Skin: no rashes, warm and dry Neurologic: moves all extremities and awake; not confused Psychiatric: A+Ox3, euthymic affect Genitourinary: no CVA tenderness Results & Data Results & Data Vital Signs (Past 12 Hours) Vital Signs Temp Pulse Resp BP Pulse Ox O2 Del Method 03/10/23 13:00 93 H 17 119/57 L 100 03/10/23 12:30 103 H 17 135/67 98 03/10/23 12:21 134 H 03/10/23 12:17 134 H 20 100 Room Air 03/10/23 12:07 36.9 C 135 H 20 121/73 100 Room Air Laboratory Results Abnormal lab results 03/10/23 03/10/23 03/10/23 Range/Units 12:17 12:21 18:55 WBC 12.08 H 12.31 H (4.8-10.8) K/ul RBC 1.94 L 2.38 L (4.70-6.10) M/uL Hgb 6.7 L* 7.8 L (14.0-18.0) g/dl Hct 19.7 L* 21.9 L (42.0-52.0) % MCV 101.5 H (80.0-100.0) fL MCH 34.5 H (25.0-34.0) pg RDW Std Deviation 49.1 H 49.6 H (36.4-46.3) fL RDW Coeff of Levar 14.8 H (11.5-14.5) % Plt Count 110 L (130-400) K/uL MPV 12.6 H (9.4-12.4) fL Reticulocyte % (Auto) 2.7 H (0.5-2.0) % Neut # (Auto) 10.96 H (1.40-6.50) K/uL Lymph # (Auto) 0.61 L (1.20-3.40) K/uL Anion Gap 12 H (3-11) BUN 36 H (6-23) mg/dl BUN/Creatinine Ratio 28.1 H (10-20) Glucose 171 H (70-99(Fasting)) mg/dl Alkaline Phosphatase 130 H (34-104) U/L Total Protein 5.8 L (6.0-8.3) gm/dl Globulin 2.3 L (2.5-4.0) gm/dl POC Stool Occult Blood Positive A (Negative) Crossmatch See Detail Diagnostic Findings SINGLE VIEW CHEST CLINICAL HISTORY: Dyspnea FINDINGS: An AP, portable, upright chest radiograph is compared to study dated 03/22/2022. The cardiomediastinal silhouette is unremarkable. Chronic interstitial thickening is similar to previous. The lungs and pleural spaces are clear. No pneumothorax is seen. There are chronic/healed right-sided rib fractures. IMPRESSION: No active disease in the chest. Medications Administered ER medications given: 2 units of packed red blood cells ordered Pantoprazole 80 mg bolus and drip Normal saline 1000 mL bolus ECG Rate (beats per minute): 112 Rhythm: sinus tachycardia Findings: no acute ischemic change Comparison ECG Date: from (October 07, 2015) Change: no significant change Code Status & VTE Plan Code Status Full VTE Prophylaxis Plan VTE Prophylaxis will be ordered: No PG Care Time/CCT Total # of Minutes Spent Total Time Spent: 90 Total Time Spent with Patient: Total time spent is greater than 50% in coordination of care (as documented) at patient's floor/unit and/or counseling patient: Coding Level of Care Code 43593 INT INP/OBS CARE 3/75MIN Diagnoses Acute blood loss anemia D62 Acute GI bleeding K92.2 History of stomach ulcers Z87.19 Tardive akathisia G25.71 Neuroleptic induced parkinsonism G21.11 Asthma J45.909 Schizoaffective disorder F25.9
[2023-03-10] MEDS: PANTOprazole 40 MG in DEXTROSE 5% MINI-B 100 ML IV SCH ×3 (14:20→22:51)
[2023-03-10 14:28] LABS: Folate (Folic Acid),Ser orPlas 10.36 ng/ml (>5.38)
[2023-03-10 19:27] LABS: Hematocrit (blood only) 21.9 % (42.0-52.0); Hemoglobin 7.8 g/dl (14.0-18.0); Mean Corpuscular Hemoglobin 32.8 pg (25.0-34.0); Mean Corpuscular Hgb Conc 35.6 g/dL (32.0-36.0); Mean Platelet Volume 11.8 fL (9.4-12.4); Platelet Count 110 K/uL (130-400); RDW Coefficient of Variation 14.8 % (11.5-14.5); RDW Standard Deviation 49.6 fL (36.4-46.3); Red Blood Count 2.38 M/uL (4.70-6.10); White Blood Count 12.31 K/ul (4.8-10.8)
[2023-03-10] MEDS: CARBIDOPA/LEVODOPA 25/100MG TAB PO SCH (20:06)
[2023-03-10] MEDS: FLUTICASONE PROPIONATE NA SPR 16 GM BTL NAE SCH (20:07)
[2023-03-10] MEDS: LITHIUM CARBONATE 300 MG TAB PO SCH (20:08)
[2023-03-10] MEDS: MELATONIN 3 MG TAB PO SCH (20:09)
[2023-03-10] MEDS: LURASIDONE HCL 20 MG TAB PO SCH (20:09)
[2023-03-10] MEDS: TAMSULOSIN HCL 0.4 MG CAP PO SCH (20:10)
[2023-03-10] MEDS: ZOLPIDEM TARTRATE 5 MG TAB PO SCH (20:13)
--- NOTE | 2023-03-10 23:34 | Communication Note ---
Date of Service: March 10, 2023 Hgb 6.7 -> 7.8 after 2 units packed RBCs. 3rd unit packed RBCs ordered to be transfused. Started having significant "melena" again around 8pm. Stable hemodynamics. Patient reviewed. Red blood mixed with water of toilet with dark red clots in toilet. Abdo SNT. ?lithium causing a direct irritant effect on stomach - level will be taken in AM but will place on hold currently. Currently transfusing 3rd unit of blood. Increased frequency of hemoglobin checks to q4h overnight. Handed over to overnight resident Dr Lion Pagan.
[2023-03-11 01:53] LABS: Hematocrit (blood only) 25.5 % (42.0-52.0); Hemoglobin 8.9 g/dl (14.0-18.0); Mean Corpuscular Hemoglobin 32.6 pg (25.0-34.0); Mean Corpuscular Hgb Conc 34.9 g/dL (32.0-36.0); Mean Corpuscular Volume 93.4 fL (80.0-100.0); Mean Platelet Volume 11.2 fL (9.4-12.4); Platelet Count 83 K/uL (130-400); RDW Standard Deviation 50.7 fL (36.4-46.3); Red Blood Count 2.73 M/uL (4.70-6.10); White Blood Count 11.08 K/ul (4.8-10.8)
[2023-03-11] MEDS: PANTOprazole 40 MG in DEXTROSE 5% MINI-B 100 ML IV SCH ×4 (04:08→20:07)
[2023-03-11 05:36] LABS: BUN Creatinine Ratio 53.1 (10-20); Calcium 8.3 mg/dl (8.6-10.3); Creatinine Clr Calc Pharmacy 100.9 ml/min; Est GFR (African American) 107.3 ml/min; Est GFR (Non-African American) 92.6 ml/min; Potassium 4.1 mmol/L (3.5-5.1)
[2023-03-11 05:44] LABS: Hematocrit (blood only) 25.8 % (42.0-52.0); Hemoglobin 9.1 g/dl (14.0-18.0); Mean Corpuscular Hgb Conc 35.3 g/dL (32.0-36.0); Mean Corpuscular Volume 93.5 fL (80.0-100.0); Mean Platelet Volume 11.8 fL (9.4-12.4); Platelet Count 85 K/uL (130-400); RDW Coefficient of Variation 15.2 % (11.5-14.5); RDW Standard Deviation 52.1 fL (36.4-46.3); Red Blood Count 2.76 M/uL (4.70-6.10); White Blood Count 12.12 K/ul (4.8-10.8)
[2023-03-11] MEDS: ONDANSETRON INJ 2 MG/ML 2 ML VIAL IV PRN (07:57)
[2023-03-11] MEDS: CARBIDOPA/LEVODOPA 25/100MG TAB PO SCH ×3 (08:01→20:27)
[2023-03-11] MEDS: FLUTICASONE/VILANTEROL 200/25MCG 14 PUFFS/INHALER INH SCH (08:01)
[2023-03-11] MEDS: FLUTICASONE PROPIONATE NA SPR 16 GM BTL NAE SCH ×2 (08:02→20:28)
[2023-03-11] MEDS ORDERED: TRIHEXYPHENIDYL HCL 2 MG TAB PO SCH (09:00)
[2023-03-11 09:17] LABS: Hematocrit (blood only) 28.8 % (42.0-52.0); Mean Corpuscular Hemoglobin 32.3 pg (25.0-34.0); Mean Corpuscular Hgb Conc 34.7 g/dL (32.0-36.0); Mean Corpuscular Volume 92.9 fL (80.0-100.0); Mean Platelet Volume 11.7 fL (9.4-12.4); Platelet Count 97 K/uL (130-400); RDW Coefficient of Variation 15.3 % (11.5-14.5); RDW Standard Deviation 51.3 fL (36.4-46.3); White Blood Count 15.21 K/ul (4.8-10.8)
--- NOTE | 2023-03-11 13:53 | Gastrointestinal Consultation ---
Date of Consultation March 11, 2023 Assessment & Plan (1) Acute GI bleeding: Pleasant man with melena for 36 hours. Does take Aleve. Suspect NSAID ulcer. Plan EGD History of Present Illness Reason for Consultation: GI bleed Attending Physician: Janet Torres MD History of Present Illness 67 year old man with melena since yesterday morning. He does complain of some epigastric pain. He admits to taking Aleve for a stiff neck recently. Has a history of gastric ulcer in the past "in [place]" Allergies Allergy/AdvReac Type Severity Reaction Status Date / Time prednisone AdvReac Intermediate GET Verified 03/10/23 13:43 AGGRESIVE, ANGRY Home Medications Medication Instructions Recorded Confirmed Type budesonide-formoterol HFA 160 2 puff inhalation BID 10/19/19 03/10/23 History mcg-4.5 mcg/actuation aerosol inhaler (Symbicort) diphenhydramine HCl 25 mg tablet 25 mg PO HS 10/19/19 03/10/23 History melatonin 5 mg capsule 5 mg PO HS 10/19/19 03/10/23 History pantoprazole 40 mg tablet,delayed 40 mg PO QAM 10/19/19 03/10/23 History release (Protonix) fluticasone propionate 50 1 spray intranasal BID 09/01/21 03/10/23 History mcg/actuation nasal spray,suspension lurasidone 80 mg tablet (Latuda) 80 mg PO QPM 09/01/21 03/10/23 History medical marijuana 1 dose PO UD PRN ANXIETY AND SLEEP 09/01/21 03/10/23 History tamsulosin 0.4 mg capsule 0.4 mg PO QPM 09/01/21 03/10/23 History cholecalciferol (vitamin D3) 50 50 mcg PO QAM 03/27/22 03/10/23 History mcg (2,000 unit) tablet (Vitamin D3) lisinopril 40 mg tablet 40 mg PO QAM 03/27/22 03/10/23 History lithium carbonate 300 mg tablet 300 mg PO HS 03/27/22 03/10/23 History zinc 50 mg tablet 50 mg PO QAM 03/27/22 03/10/23 History carbidopa 25 mg-levodopa 100 mg 1 tab PO TID 90 days #270 tabs 02/20/23 03/10/23 Rx tablet trihexyphenidyl 2 mg tablet 1 mg (1/2 x 2 mg) PO DAILY #45 tabs 02/20/23 03/10/23 Rx hydrochlorothiazide 12.5 mg capsule 12.5 mg PO QAM 03/10/23 03/10/23 History Patient History Medical History Anemia Medical marijuana use Hx of urethral stricture Parkinson's syndrome Hx of migraines Hx of prostatitis Hypertension Seasonal allergies History of basal cell carcinoma DVT prophylaxis Schizoaffective disorder History of sepsis 8YR AGO - HAD KIDNEY STONE AT TIME AND PROSTATE INFECTION History of hepatitis C RESOLVED Fatty liver History of renal calculi History of stomach ulcers Tremor LEGS, ARMS AND HANDS...FOLLOWED BY DR. RANDLE Low sodium levels CHRONIC LOW Na 135 on 03/22/22 Asthma HAS NOT USED RESCUE INHALER FOR OVER A YEAR Surgical History H/O right inguinal hernia repair (04/11/22) Robotic Laparoscopic assisted Right Inguinal Hernia Repair with mesh(Right) - Samuel Clancy, , FACS History of anesthesia reaction CONFUSION AFTER ANESTHESIA FOR A COUPLE OF DAYS H/O hemorrhoidectomy History of hydrocelectomy LEFT History of cystoscopy URETHRAL REPAIR History of esophagogastroduodenoscopy (EGD) [place] teeth removed History of cataract surgery LEFT History of tonsillectomy History of arthroscopy of left knee History of carpal tunnel release of both wrists History of elbow surgery ULNAR RELEASE R & L History of colonoscopy Family History Father Migraine Hypertension Mother Dementia Hypertension Grandmother Colorectal cancer Social History Smoking Status: Never smoker Second Hand Exposure: Yes ( A CHILD); Do You Dip or Chew Tobacco: No; Hx Alcohol Use: No Hx Substance Use: Yes Last Used Substance: Days (ago) Last Used Substance Other:: 03/09/23 medical marijuana Substance Use Type Other:: MEDICAL MARIJUANA DIRECTED Preferred Language: Kazakh Communication Ability: Effective Visual Impairment: No Limitations Lugger Required: No Beliefs That Will Affect Care: None marital status: Current Living Situation: Spouse current occupational status: retired Other Information That Helps Us Care for You: No Feels Safe at Home: Yes Safety Concerns: Feels Safe At This Time Diet: regular during the past year weight has: decreased > 10 lbs Assistive Devices: Glasses Review of Systems Review of Systems: All systems reviewed & are unremarkable except as noted in HPI & below Physical Exam Constitutional: WD/WN, vitals as above Neck: trachea midline, no thyromegaly Respiratory: normal respiratory effort, lungs clear to auscultation Cardiovascular: RRR, no murmur, no edema Gastrointestinal (Abdomen): normal bowel sounds, soft, nontender, no hepatosplenomegaly Results & Data Vital Signs (Past 12 Hours) Vital Signs Temp Pulse Resp BP Pulse Ox O2 Del Method 03/11/23 12:01 36.8 C 80 17 120/66 95 Room Air 03/11/23 08:00 36.6 C 91 H 17 147/75 H 95 Room Air 03/11/23 02:04 36.9 C 102 H 22 137/74 96 Room Air Laboratory Results 03/11/23 03/11/23 03/11/23 Range/Units 08:47 04:49 01:04 WBC 15.21 H 12.12 H 11.08 H (4.8-10.8) K/ul RBC 3.10 L 2.76 L 2.73 L (4.70-6.10) M/uL Hgb 10.0 L 9.1 L 8.9 L (14.0-18.0) g/dl Hct 28.8 L 25.8 L 25.5 L (42.0-52.0) % MCV 92.9 93.5 93.4 (80.0-100.0) fL MCH 32.3 33.0 32.6 (25.0-34.0) pg MCHC 34.7 35.3 34.9 (32.0-36.0) g/dL RDW Std Deviation 51.3 H 52.1 H 50.7 H (36.4-46.3) fL RDW Coeff of Levar 15.3 H 15.2 H 15.0 H (11.5-14.5) % Plt Count 97 L 85 L 83 L (130-400) K/uL MPV 11.7 11.8 11.2 (9.4-12.4) fL Sodium 137 (136-145) mmol/L Potassium 4.1 (3.5-5.1) mmol/L Chloride 105 (98-107) mmol/L Carbon Dioxide 25 (21-32) mmol/L Anion Gap 7 (3-11) BUN 43 H (6-23) mg/dl Creatinine 0.81 D (0.6-1.4) mg/dl Est Cr Clr Drug Dosing 100.9 ml/min Est GFR ( Amer) 107.3 ml/min Est GFR (Non-Af Amer) 92.6 ml/min BUN/Creatinine Ratio 53.1 H (10-20) Glucose 119 H (70-99(Fasting)) mg/dl Calcium 8.3 L (8.6-10.3) mg/dl Iron (35-175) mcg/dl TIBC (250-450) mcg/dl Unsaturated IBC (155-355) mcg/dl Transferrin % Sat (20-50) % Ferritin (8-388) ng/ml Lactate Dehydrogenase (86-244) U/L Troponin I High Sens (0-20) pg/ml Vitamin B12 (180-914) pg/ml Folate (>5.38) ng/ml POC Stool Occult Blood (Negative) [place] 0.5 L (0.6-1.2) mmol/L Hepatitis C Ab (EIA) Blood Type Antibody Screen Crossmatch 03/10/23 03/10/23 03/10/23 Range/Units 18:55 12:24 12:21 WBC 12.31 H (4.8-10.8) K/ul RBC 2.38 L (4.70-6.10) M/uL Hgb 7.8 L (14.0-18.0) g/dl Hct 21.9 L (42.0-52.0) % MCV 92.0 D (80.0-100.0) fL MCH 32.8 (25.0-34.0) pg MCHC 35.6 (32.0-36.0) g/dL RDW Std Deviation 49.6 H (36.4-46.3) fL RDW Coeff of Levar 14.8 H (11.5-14.5) % Plt Count 110 L (130-400) K/uL MPV 11.8 (9.4-12.4) fL Sodium (136-145) mmol/L Potassium (3.5-5.1) mmol/L Chloride (98-107) mmol/L Carbon Dioxide (21-32) mmol/L Anion Gap (3-11) BUN (6-23) mg/dl Creatinine (0.6-1.4) mg/dl Est Cr Clr Drug Dosing ml/min Est GFR ( Amer) ml/min Est GFR (Non-Af Amer) ml/min BUN/Creatinine Ratio (10-20) Glucose (70-99(Fasting)) mg/dl Calcium (8.6-10.3) mg/dl Iron 105 (35-175) mcg/dl TIBC 272 (250-450) mcg/dl Unsaturated IBC 167 (155-355) mcg/dl Transferrin % Sat 39 (20-50) % Ferritin 42.0 (8-388) ng/ml Lactate Dehydrogenase 145 (86-244) U/L Troponin I High Sens 9.6 (0-20) pg/ml Vitamin B12 416 (180-914) pg/ml Folate 10.36 (>5.38) ng/ml POC Stool Occult Blood (Negative) [place] (0.6-1.2) mmol/L Hepatitis C Ab (EIA) Pending Blood Type O Positive Antibody Screen NEGATIVE Crossmatch See Detail 03/10/23 Range/Units 12:17 WBC (4.8-10.8) K/ul RBC (4.70-6.10) M/uL Hgb (14.0-18.0) g/dl Hct (42.0-52.0) % MCV (80.0-100.0) fL MCH (25.0-34.0) pg MCHC (32.0-36.0) g/dL RDW Std Deviation (36.4-46.3) fL RDW Coeff of Levar (11.5-14.5) % Plt Count (130-400) K/uL MPV (9.4-12.4) fL Sodium (136-145) mmol/L Potassium (3.5-5.1) mmol/L Chloride (98-107) mmol/L Carbon Dioxide (21-32) mmol/L Anion Gap (3-11) BUN (6-23) mg/dl Creatinine (0.6-1.4) mg/dl Est Cr Clr Drug Dosing ml/min Est GFR ( Amer) ml/min Est GFR (Non-Af Amer) ml/min BUN/Creatinine Ratio (10-20) Glucose (70-99(Fasting)) mg/dl Calcium (8.6-10.3) mg/dl Iron (35-175) mcg/dl TIBC (250-450) mcg/dl Unsaturated IBC (155-355) mcg/dl Transferrin % Sat (20-50) % Ferritin (8-388) ng/ml Lactate Dehydrogenase (86-244) U/L Troponin I High Sens (0-20) pg/ml Vitamin B12 (180-914) pg/ml Folate (>5.38) ng/ml POC Stool Occult Blood Positive A (Negative) [place] (0.6-1.2) mmol/L Hepatitis C Ab (EIA) Blood Type Antibody Screen Crossmatch Diagnostic Findings Chest X-Ray 03/10/23 13:28 SINGLE VIEW CHEST CLINICAL HISTORY: Dyspnea FINDINGS: An AP, portable, upright chest radiograph is compared to study dated 03/22/2022. The cardiomediastinal silhouette is unremarkable. Chronic interstitial thickening is similar to previous. The lungs and pleural spaces are clear. No pneumothorax is seen. There are chronic/healed right-sided rib fractures. IMPRESSION: No active disease in the chest. ACT 112: Negative or not required by law. Electronically signed by: Jassi Whatley M.D. 03/10/2023 1:45 PM
--- NOTE | 2023-03-11 14:13 | Anesthesiology Consultation ---
Date of Service March 11, 2023 Assessment & Plan Chart Review Chart Review: Acceptable Risk for Surgery, Patient NOT seen in Pre Admission Testing and customs entry writer initiated Consults Requested none ASA ASA3 Proposed Anesthesia Anesthesia Type: MAC Risk / Benefits Reviewed With: PT / POA / Parent / Guardian, Accepts Plan and Informed Consent Obtained History Surgery Operation Date: 03/11/23 19:45 Proposed Procedures p Esophagogastroduodenoscopy Dr. Barnard - Arminda Barnard Jr, MD Height/Weight Height: 5 ft 10 in Weight: 89.3 kg Allergies Allergy/AdvReac Type Severity Reaction Status Date / Time prednisone AdvReac Intermediate GET Verified 03/11/23 13:53 AGGRESIVE, ANGRY Medications Home Medications Medication Instructions Recorded Confirmed Last Taken budesonide-formoterol HFA 160 2 puff inhalation BID 10/19/19 03/10/23 03/09/23 mcg-4.5 mcg/actuation aerosol inhaler (Symbicort) diphenhydramine HCl 25 mg tablet 25 mg PO HS 10/19/19 03/10/23 03/09/23 melatonin 5 mg capsule 5 mg PO HS 10/19/19 03/10/23 03/09/23 pantoprazole 40 mg tablet,delayed 40 mg PO QAM 10/19/19 03/10/23 03/09/23 release (Protonix) fluticasone propionate 50 1 spray intranasal BID 09/01/21 03/10/23 03/09/23 mcg/actuation nasal spray,suspension lurasidone 80 mg tablet (Latuda) 80 mg PO QPM 09/01/21 03/10/23 03/09/23 medical marijuana 1 dose PO UD PRN ANXIETY AND SLEEP 09/01/21 03/10/23 03/09/23 tamsulosin 0.4 mg capsule 0.4 mg PO QPM 09/01/21 03/10/23 03/09/23 cholecalciferol (vitamin D3) 50 50 mcg PO QAM 03/27/22 03/10/23 03/09/23 mcg (2,000 unit) tablet (Vitamin D3) lisinopril 40 mg tablet 40 mg PO QAM 03/27/22 03/10/23 03/09/23 lithium carbonate 300 mg tablet 300 mg PO HS 03/27/22 03/10/23 03/09/23 zinc 50 mg tablet 50 mg PO QAM 03/27/22 03/10/23 03/09/23 carbidopa 25 mg-levodopa 100 mg 1 tab PO TID 90 days #270 tabs 02/20/23 03/10/23 03/09/23 tablet trihexyphenidyl 2 mg tablet 1 mg (1/2 x 2 mg) PO DAILY #45 tabs 02/20/23 03/10/23 03/09/23 hydrochlorothiazide 12.5 mg capsule 12.5 mg PO QAM 03/10/23 03/10/23 03/09/23 Active Medications Generic Name Dose Route Start Last Admin Trade Name Ruelq PRN Reason Stop Dose Admin Carbidopa/Levodopa 1 tab 03/10/23 21:00 03/11/23 08:01 Carbidopa/Levodopa 25/100mg Tab PO 04/09/23 20:59 1 tab TID CAIN Administration Fluticasone Propionate 1 sprays 03/10/23 21:00 03/11/23 08:02 Fluticasone Propionate Na Spr 16 Gm Btl MICHEL 04/09/23 20:59 1 sprays BID CAIN Administration Fluticasone/Vilanterol 1 puffs 03/11/23 09:00 03/11/23 08:01 Fluticasone/Vilanterol 200/25mcg 14 Puffs/Inhaler INH 04/10/23 08:59 1 puffs DAILY CAIN Administration Pantoprazole Sodium 40 mg/ 100 mls @ 20 mls/hr 03/10/23 13:45 03/11/23 09:23 Dextrose IV 04/09/23 13:44 8 mg/hr Q5H CAIN 20 mls/hr Administration 8 MG/HR [place] Carbonate 300 mg 03/10/23 21:00 03/10/23 20:08 [place] Carbonate 300 Mg Tab PO 04/09/23 20:59 300 mg HS CAIN Administration Lurasidone HCl 80 mg 03/10/23 21:00 03/10/23 20:09 Lurasidone Hcl 20 Mg Tab PO 04/09/23 20:59 80 mg QPM CAIN Administration Melatonin 6 mg 03/10/23 21:00 03/10/23 20:09 Melatonin 3 Mg Tab PO 04/09/23 20:59 6 mg HS CAIN Administration Ondansetron HCl 4 mg 03/11/23 07:49 03/11/23 07:57 Ondansetron Inj 2 Mg/Ml 2 Ml Vial IV 04/10/23 07:48 4 mg Q6H PRN Administration Nausea And Vomiting Tamsulosin HCl 0.4 mg 03/10/23 21:00 03/10/23 20:10 Tamsulosin Hcl 0.4 Mg Cap PO 04/09/23 20:59 0.4 mg QPM CAIN Administration Trihexyphenidyl HCl 1 mg 03/11/23 09:00 03/11/23 08:01 Trihexyphenidyl Hcl 2 Mg Tab PO 04/10/23 08:59 1 mg DAILY CAIN Administration Zolpidem Tartrate 5 mg 03/10/23 21:00 03/10/23 20:13 Zolpidem Tartrate 5 Mg Tab PO 04/09/23 20:59 5 mg HS CAIN Administration NPO Date Last Intake of Fluids: 03/11/23 Time Last Intake of Fluids: 08:00 Last Intake of Fluids Comment: sip of water with pills Date Last Intake of Solids: 03/09/23 Time Last Intake of Solids: 17:00 Past Medical History Medical History Anemia Medical marijuana use Hx of urethral stricture Parkinson's syndrome Hx of migraines Hx of prostatitis Hypertension Seasonal allergies History of basal cell carcinoma DVT prophylaxis Schizoaffective disorder History of sepsis 8YR AGO - HAD KIDNEY STONE AT TIME AND PROSTATE INFECTION History of hepatitis C RESOLVED Fatty liver History of renal calculi History of stomach ulcers Tremor LEGS, ARMS AND HANDS...FOLLOWED BY DR. RANDLE Low sodium levels CHRONIC LOW Na 135 on 03/22/22 Asthma HAS NOT USED RESCUE INHALER FOR OVER A YEAR Exercise / Class Metabolic Activity 1 > 8 Run/Swim/Ski/Tennis Past Family History Family History Father Migraine Hypertension Mother Dementia Hypertension Grandmother Colorectal cancer Past Surgical History Surgical History H/O right inguinal hernia repair (04/11/22) Robotic Laparoscopic assisted Right Inguinal Hernia Repair with mesh(Right) - Samuel M. Chambers, DO, FACS History of anesthesia reaction CONFUSION AFTER ANESTHESIA FOR A COUPLE OF DAYS H/O hemorrhoidectomy History of hydrocelectomy LEFT History of cystoscopy URETHRAL REPAIR History of esophagogastroduodenoscopy (EGD) [place] teeth removed History of cataract surgery LEFT History of tonsillectomy History of arthroscopy of left knee History of carpal tunnel release of both wrists History of elbow surgery ULNAR RELEASE R & L History of colonoscopy Past Anesthesia History No Hx of Anesthesia Complications and No Family Hx of Anesthesia Complications History of PONV No Hx of PONV and No Hx of Motion Sickness Social History Smoking Status: Never smoker Do You Dip or Chew Tobacco: No Hx Alcohol Use: No 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 Hx Substance Use: Yes substance use type: marijuana Substance Use Type Other:: MEDICAL MARIJUANA DIRECTED Last Used Substance: Days (ago) Last Used Substance Other:: 03/09/23 medical marijuana Physical Exam Vital Signs Last Vital Signs Temp 37.3 C 03/11/23 13:53 Pulse 102 H 03/11/23 13:53 Resp 18 03/11/23 13:53 BP 177/91 H 03/11/23 13:53 Pulse Ox 96 03/11/23 13:53 O2 Del Method Room Air 03/11/23 13:53 Constitutional no acute distress ENMT Mouth: + chipped teeth; no loose teeth Thyromental Distance: > or= 3.5 Finger Breadths Mallampati Class: III Neck normal visual inspection, trachea midline and + limited neck extension Respiratory normal respiratory effort; no respiratory distress Auscultation: lungs clear to auscultation bilaterally; no crackles, no rhonchi and no wheezes Cardiovascular Rate/Rhythm: regular rate and regular rhythm Heart Sounds: no gallop, no murmur and no cardiac rub Musculoskeletal Head/Neck/Chest: full ROM of neck Spine: + limited cervical ROM Neurologic moves all extremities and awake Psychiatric Orientation: alert and oriented x 3 Testing Laboratory Results 03/11/23 08:47 03/11/23 04:49 PT 12.0 Seconds (9.0-12.0) 03/10/23 12:21 INR 1.1 (0.9-1.1) 03/10/23 12:21 APTT 22 Seconds (21-31) 03/10/23 12:21 Blood Type O Positive 03/10/23 12:21 Antibody Screen NEGATIVE 03/10/23 12:21
[2023-03-11] MEDS ORDERED: ONDANSETRON INJ 2 MG/ML 2 ML VIAL ONE (14:17)
[2023-03-11] MEDS ORDERED: PROPOFOL IV EMULSION 10 MG/ML 20 ML VIAL IV ONE (14:17)
[2023-03-11] MEDS ORDERED: LIDOCAINE 2% 2 ML VIAL/AMP(20MG/ML) INFIL ONE (14:17)
[2023-03-11] MEDS ORDERED: GLYCOPYRROLATE 0.2 MG/ML VIAL ONE (14:17)
--- NOTE | 2023-03-11 14:35 | GI REPORT ---
Patient Name: Hugo Dowd Procedure Date: 03/11/2023 2:25 PM Date of : 1955 Admit Type: Inpatient Age: 67 Gender: Male Attending MD: Arminda Barnard MD, Procedure: Upper GI endoscopy Providers: Arminda Barnard MD Referring MD: Referred Self Indications: Melena Medicines: Propofol per Anesthesia Complications: No immediate complications. Estimated Blood Loss: Estimated blood loss: none. Procedure: Pre-Anesthesia Assessment: - Prior to the procedure, a History and Physical was performed, and patient medications and allergies were reviewed. The patient's tolerance of previous anesthesia was also reviewed. The risks and benefits of the procedure and the sedation options and risks were discussed with the patient. All questions were answered, and informed consent was obtained. Prior Anticoagulants: The patient has taken no anticoagulant or antiplatelet agents. ASA Grade Assessment: III - A patient with severe systemic disease. After reviewing the risks and benefits, the patient was deemed in satisfactory condition to undergo the procedure. After obtaining informed consent, the endoscope was passed under direct vision. Throughout the procedure, the patient's blood pressure, pulse, and oxygen saturations were monitored continuously. The Scope was introduced through the mouth, and advanced to the second part of duodenum. The upper GI endoscopy was accomplished without difficulty. The patient tolerated the procedure well. Findings: Grade II varices were found in the lower third of the esophagus. No bleeding. No blood in esophagus. No red weal sign or other stigmata Moderate portal hypertensive gastropathy was found in the cardia, in the gastric fundus and in the gastric body. No active bleeding. No blood in stomach The examined duodenum was normal. No blood in duodenum Impression: - Grade II esophageal varices. - Portal hypertensive gastropathy. - Normal examined duodenum. - No specimens collected. Recommendation: - Patient has a contact number available for emergencies. The signs and symptoms of potential delayed complications were discussed with the patient. Return to normal activities tomorrow. Written discharge instructions were provided to the patient. - Resume previous diet. - Continue present medications. Arminda Barnard MD 03/11/2023 2:34:57 PM Note Initiated On: 03/11/2023 2:25 PM Number of Addenda: 0 I attest to the content of the Intraoperative Record and orders documented therein, exceptions below {[id number]}
--- NOTE | 2023-03-11 15:35 | Anesthesiology Progress Note ---
Date of Service March 11, 2023 Anesthesia Post Procedure Vital Signs Vital Signs: Temp Pulse Pulse Resp BP BP BP 03/11/23 15:08 99 H 20 127/75 03/11/23 14:50 96 H 18 127/62 03/11/23 14:35 94 H 16 108/60 03/11/23 13:53 37.3 C 102 H 18 177/91 H 03/11/23 12:01 36.8 C 80 17 120/66 03/11/23 08:00 36.6 C 91 H 17 147/75 H 03/11/23 02:04 36.9 C 102 H 22 137/74 03/10/23 23:58 36.9 C 93 H 18 105/63 03/10/23 23:50 36.9 C 92 H 16 120/66 03/10/23 22:50 36.8 C 93 H 16 102/65 03/10/23 22:20 37 C 87 18 102/60 03/10/23 22:05 37.3 C 88 17 112/63 03/10/23 22:05 37 C 97 H 18 95/55 L 03/10/23 21:42 37 C 87 18 113/67 03/10/23 21:26 37.0 C 85 18 113/67 03/10/23 19:00 36.8 C 96 H 20 128/68 03/10/23 18:22 93 H 03/10/23 18:08 03/10/23 17:38 37.5 C 86 20 95/56 L 03/10/23 17:38 37.5 C 90 20 117/60 03/10/23 17:08 37.4 C 97 H 20 137/73 03/10/23 16:53 37.4 C 101 H 20 145/73 H 03/10/23 16:53 37.4 C 89 20 119/71 03/10/23 16:37 37.4 C 97 H 20 117/62 03/10/23 16:27 36.9 C 95 H 20 123/57 L 03/10/23 16:11 37.4 C 115 H 20 159/77 H 03/10/23 16:10 03/10/23 16:10 37.4 C 115 H 20 159/77 H Pulse Ox Pulse Ox O2 Del Method O2 Del Method 03/11/23 15:08 95 Room Air 03/11/23 14:50 95 Room Air 03/11/23 14:35 96 Room Air 03/11/23 13:53 96 Room Air 03/11/23 12:01 95 Room Air 03/11/23 08:00 95 Room Air 03/11/23 02:04 96 Room Air 03/10/23 23:58 96 03/10/23 23:50 97 03/10/23 22:50 97 03/10/23 22:20 95 03/10/23 22:05 96 03/10/23 22:05 95 03/10/23 21:42 97 03/10/23 21:26 97 Room Air 03/10/23 19:00 96 Room Air 03/10/23 18:22 03/10/23 18:08 97 Room Air 03/10/23 17:38 97 03/10/23 17:38 97 03/10/23 17:08 97 03/10/23 16:53 97 03/10/23 16:53 97 03/10/23 16:37 97 03/10/23 16:27 97 03/10/23 16:11 98 Room Air 03/10/23 16:10 Room Air 03/10/23 16:10 98 Room Air Pain Intensity Lower Abdomen: Pain Intensity: 3 Transfer of Care Handoff Completed per policy Notes Mental Status: alert / awake / arousable Patient Amnestic to Procedure: Yes Nausea / Vomiting: adequately controlled Pain: adequately controlled Airway Patency, RR, SpO2: stable & adequate BP & HR: stable & adequate Hydration State: stable & adequate Anesthetic Complications: no major complications apparent and Pt Satisfied with anesthetic care
--- NOTE | 2023-03-11 15:52 | Hospitalist Progress Note ---
Date of Service March 11, 2023 Assessment & Plan (1) Acute blood loss anemia: Plan: Hemoglobin 6.7 on admission from previous baseline 12.8 in February 2022 (1 year ago) Suspect from acute GI bleed (see below) Hemoglobin q.6 hourly Transfuse several units of packed red blood cells (2) Acute GI bleeding: Plan: Currently on Protonix drip EGD completed by GI Awaiting official report [place] on hold due to concern for direct irritant effect on stomach. [place] level is rather low. 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 GI planned on EGD. Patient was feeling dizzy. Hemoglobin stable at 10. Hemodynamically stable. Review of Systems Review of Systems: All systems reviewed & are unremarkable except as noted in Subjective Physical Exam Physical Exam: General: Awake, conversant Heart: S1, S2/regular rate and rhythm, no murmur rubs or gallops Lungs: Clear to auscultation bilaterally. Normal effort Abdomen: Soft/nondistended. Upper abdomen mildly tender without rebound, rigidity or guarding. No hepatosplenomegaly Extremities: No clubbing/cyanosis. No edema Behavior: Appropriate, cooperative Results & Data Results & Data Vital Signs (Past 12 Hours) Vital Signs Temp Pulse Resp BP Pulse Ox O2 Del Method 03/11/23 15:35 37.1 C 100 H 18 154/74 H 96 Room Air 03/11/23 15:08 99 H 20 127/75 95 Room Air 03/11/23 14:50 96 H 18 127/62 95 Room Air 03/11/23 14:35 94 H 16 108/60 96 Room Air 03/11/23 13:53 37.3 C 102 H 18 177/91 H 96 Room Air 1218/23 12:01 36.8 C 80 17 120/66 95 Room Air 03/11/23 08:00 36.6 C 91 H 17 147/75 H 95 Room Air Laboratory Results Abnormal lab results 03/10/23 03/10/23 03/11/23 Range/Units 12:21 18:55 01:04 WBC 12.31 H 11.08 H (4.8-10.8) K/ul RBC 2.38 L 2.73 L (4.70-6.10) M/uL Hgb 7.8 L 8.9 L (14.0-18.0) g/dl Hct 21.9 L 25.5 L (42.0-52.0) % RDW Std Deviation 49.6 H 50.7 H (36.4-46.3) fL RDW Coeff of [place]ar 14.8 H 15.0 H (11.5-14.5) % Plt Count 110 L 83 L (130-400) K/uL BUN (6-23) mg/dl BUN/Creatinine Ratio (10-20) Glucose (70-99(Fasting)) mg/dl Calcium (8.6-10.3) mg/dl [place] (0.6-1.2) mmol/L Crossmatch See Detail 03/11/23 03/11/23 Range/Units 04:49 08:47 WBC 12.12 H 15.21 H (4.8-10.8) K/ul RBC 2.76 L 3.10 L (4.70-6.10) M/uL Hgb 9.1 L 10.0 L (14.0-18.0) g/dl Hct 25.8 L 28.8 L (42.0-52.0) % RDW Std Deviation 52.1 H 51.3 H (36.4-46.3) fL RDW Coeff of Levar 15.2 H 15.3 H (11.5-14.5) % Plt Count 85 L 97 L (130-400) K/uL BUN 43 H (6-23) mg/dl BUN/Creatinine Ratio 53.1 H (10-20) Glucose 119 H (70-99(Fasting)) mg/dl Calcium 8.3 L (8.6-10.3) mg/dl [place] 0.5 L (0.6-1.2) mmol/L Crossmatch PG Care Time/CCT Total # of Minutes Spent Total Time Spent with Patient: Total time spent is greater than 50% in coordination of care (as documented) at patient's floor/unit and/or counseling patient: Coding Level of Care Code 40742 SUB INP/OBS CARE 2/35MIN Diagnoses Acute blood loss anemia D62 Acute GI bleeding K92.2 History of stomach ulcers Z87.19 Tardive akathisia G25.71 Neuroleptic induced parkinsonism G21.11 Asthma J45.909 Schizoaffective disorder F25.9
[2023-03-11] MEDS: LURASIDONE HCL 20 MG TAB PO SCH (20:29)
[2023-03-11] MEDS: TAMSULOSIN HCL 0.4 MG CAP PO SCH (20:30)
[2023-03-11] MEDS: MELATONIN 3 MG TAB PO SCH (20:30)
[2023-03-11] MEDS: ZOLPIDEM TARTRATE 5 MG TAB PO SCH (20:32)
[2023-03-11] MEDS ORDERED: Nursing to Pharmacy Communication SCH (23:45)
[2023-03-12] MEDS: TRIHEXYPHENIDYL HCL 2 MG TAB PO SCH ×2 (00:30→21:29)
[2023-03-12] MEDS: PANTOprazole 40 MG in DEXTROSE 5% MINI-B 100 ML IV SCH ×2 (01:06→06:09)
[2023-03-12] MEDS ORDERED: MoRPHine SULFATE 2 MG/ML CARP IV STA (02:19)
--- NOTE | 2023-03-12 05:46 | Electrocardiogram Report ---
Test Reason : Blood Pressure : / mmHG Vent. Rate : 112 BPM Atrial Rate : 112 BPM P-R Int : 112 ms QRS Dur : 072 ms QT Int : 328 ms P-R-T Axes : 076 047 034 degrees QTc Int : 447 ms Sinus tachycardia Nonspecific ST abnormality When compared with ECG of 07-OCT-2015 11:27, No significant change was found Confirmed by Jorge Luis Ibanez ([id number]) on 03/12/2023 5:46:25 AM Referred By: Confirmed By:Jorge Luis Ibanez
[2023-03-12 08:01] LABS: Hematocrit (blood only) 25.3 % (42.0-52.0); Hemoglobin 8.9 g/dl (14.0-18.0); Mean Corpuscular Hemoglobin 33.1 pg (25.0-34.0); Mean Corpuscular Hgb Conc 35.2 g/dL (32.0-36.0); Mean Corpuscular Volume 94.1 fL (80.0-100.0); Mean Platelet Volume 11.1 fL (9.4-12.4); Platelet Count 78 K/uL (130-400); RDW Coefficient of Variation 14.7 % (11.5-14.5); RDW Standard Deviation 51.2 fL (36.4-46.3); Red Blood Count 2.69 M/uL (4.70-6.10); White Blood Count 10.56 K/ul (4.8-10.8)
[2023-03-12] MEDS: ONDANSETRON INJ 2 MG/ML 2 ML VIAL IV PRN ×2 (08:07→18:23)
[2023-03-12 08:15] LABS: BUN Creatinine Ratio 35.4 (10-20); Calcium 8.4 mg/dl (8.6-10.3); Creatinine Clr Calc Pharmacy 91.5 ml/min; Est GFR (African American) 106.8 ml/min; Est GFR (Non-African American) 92.1 ml/min; Potassium 3.6 mmol/L (3.5-5.1)
[2023-03-12] MEDS: FLUTICASONE/VILANTEROL 200/25MCG 14 PUFFS/INHALER INH SCH (08:38)
[2023-03-12] MEDS: CARBIDOPA/LEVODOPA 25/100MG TAB PO SCH ×3 (08:38→21:30)
[2023-03-12] MEDS: FLUTICASONE PROPIONATE NA SPR 16 GM BTL NAE SCH ×2 (08:38→21:30)
[2023-03-12] MEDS: nadoloL 40 MG TAB PO SCH (11:16)
--- NOTE | 2023-03-12 12:26 | CT Scan Report ---
ABDOMEN AND PELVIS CT WITHOUT CONTRAST CT DOSE: 1273.55 mGy.cm HISTORY: Generalized abdominal pain. TECHNIQUE: Multiaxial CT images of the abdomen and pelvis were performed without contrast. A dose lo wering technique was utilized adhering to the principles of ALARA. COMPARISON STUDY: Abdomen and pelvis CT 05/31/2020. FINDINGS: The lung bases are clear. No pneumoperitoneum. No pneumatosis. No acute fractures identifie d. Nodular contour to the liver consistent with cirrhosis. This is new compared to the prior study. T he spleen is normal in size. The unenhanced pancreas and adrenal glands unremarkable. No renal or ure teral stones. No hydronephrosis. Stable hypodense lesions within the right kidney. These favor cysts. Mild bilateral perinephric edema is noted. There are few small gallstones. No significant gallbladde r wall thickening. Pericholecystic edema is likely due to the cirrhosis. Normal caliber abdominal aor ta with mild calcified plaque. No retroperitoneal or pelvic lymphadenopathy. There is a small to mode rate amount of ascites. Bladder wall thickening is likely due to underdistention. Suboptimal evaluati on for bowel pathology due to the lack of intravenous and oral contrast. Colonic diverticulosis. No e vidence for acute diverticulitis. No definite bowel wall thickening or obstruction. Normal appendix. IMPRESSION: 1. Cirrhotic liver with a small to moderate amount of ascites. This is new compared to the prior stud y. 2. Cholelithiasis. No gallbladder wall thickening. Pericholecystic edema is likely due to the cirrhos is. 3. No definite bowel wall thickening or obstruction. 4. Normal appendix. 5. Colonic diverticulosis. No evidence for acute diverticulitis. 6. Bladder wall thickening. This may be due to underdistention. Recommend correlation with urinalysis . ACT 112: Negative or not required by law. Electronically signed by: Keo Barnard M.D. 03/12/2023 12:24 PM
[2023-03-12] MEDS: traMADol HCL 50 MG TABLET PO PRN ×2 (14:23→21:36)
--- NOTE | 2023-03-12 14:24 | Gastroenterology Progress Note ---
Date of Service March 12, 2023 Assessment & Plan (1) Acute GI bleeding: Plan: He has not shown any further bleeding. CT confirms cirrhosis. The ascites may be making him uncomfortable with distension but not sure about the amount of pain he is having. May need to tap his belly if pain doesn't resolve Admission and Anticipated Discharge Date Admission Date: March 10, 2023 Subjective No further bleeding. No bowel movements. Had an abrupt onset of abdominal pain and distension. Stat CT shows cirrhotic liver with "small to moderate amount of ascites". No acute cause for abdominal pain on CT Physical Exam Physical Exam: He looks uncomfortable Constitutional: WD/WN, vitals as above Gastrointestinal (Abdomen): Inspection/Auscultation: + abdomen distended Percussion/Palpation: + abdomen tender Results & Data Vital Signs (Past 12 Hours) Vital Signs Temp Pulse Resp BP Pulse Ox O2 Del Method 03/12/23 11:22 36.9 C 84 19 130/63 97 Room Air 03/12/23 07:38 36.8 C 79 19 118/63 91 Room Air
--- NOTE | 2023-03-12 17:50 | Hospitalist Progress Note ---
Date of Service March 12, 2023 Assessment & Plan (1) Acute blood loss anemia: Plan: Hemoglobin 6.7 on admission from previous baseline 12.8 in February 2022 (1 year ago) Suspect from acute GI bleed (see below) Hemoglobin stable No further GI bleed (2) Acute GI bleeding: Plan: EGD completed No peptic ulcer disease seen Esophageal varices and portal gastropathy seen Protonix discontinued Patient has been started on a full liquid diet Nadolol started CT abdomen shows nodular cirrhotic liver. This is a surprise to the patient. He was not aware of a diagnosis of liver cirrhosis. 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 Could be secondary to ascites related discomfort If pain not improved, will need paracentesis Will monitor Patient has a history of hepatitis C This will need to be followed outpatient by GI. Plan VTE prophylaxis - chemical contraindicated in the setting of acute GI bleed Diet -full liquid diet Spoke to on the phone in detail. Admission and Anticipated Discharge Date Admission Date: March 10, 2023 Subjective Patient was complaining of abdominal pain. CT abdomen was ordered. EGD did not reveal any peptic ulcers rather showed esophageal varices and portal gastropathy. Review of Systems Review of Systems: All systems reviewed & are unremarkable except as noted in Subjective Physical Exam Physical Exam: General: Awake, conversant Heart: S1, S2/regular rate and rhythm, no murmur rubs or gallops Lungs: Clear to auscultation bilaterally. Normal effort Abdomen: Soft/nondistended. Upper abdomen mildly tender without rebound, rigidity or guarding. No hepatosplenomegaly Extremities: No clubbing/cyanosis. No edema Behavior: Appropriate, cooperative Results & Data Results & Data Vital Signs (Past 12 Hours) Vital Signs Temp Pulse Resp BP Pulse Ox O2 Del Method 03/12/23 14:51 36.7 C 66 19 133/58 L 97 Room Air 03/12/23 11:22 36.9 C 84 19 130/63 97 Room Air 03/12/23 07:38 36.8 C 79 19 118/63 91 Room Air Laboratory Results Abnormal lab results 03/10/23 03/12/23 Range/Units 12:24 07:44 RBC 2.69 L (4.70-6.10) M/uL Hgb 8.9 L (14.0-18.0) g/dl Hct 25.3 L (42.0-52.0) % RDW Std Deviation 51.2 H (36.4-46.3) fL RDW Coeff of Levar 14.7 H (11.5-14.5) % Plt Count 78 L (130-400) K/uL BUN 29 H (6-23) mg/dl BUN/Creatinine Ratio 35.4 H (10-20) Glucose 120 H (70-99(Fasting)) mg/dl Calcium 8.4 L (8.6-10.3) mg/dl Hepatitis C Ab (EIA) REACTIVE A (NON-REACTIVE) Diagnostic Findings Abdomen/Pelvis CT 03/12/23 11:[address] WITHOUT CONTRAST CT DOSE: 1273.55 mGy.cm HISTORY: Generalized abdominal pain. TECHNIQUE: Multiaxial CT images of the abdomen and pelvis were performed without contrast. A dose lowering technique was utilized adhering to the principles of ALARA. COMPARISON STUDY: Abdomen and pelvis CT 05/31/2020. FINDINGS: The lung bases are clear. No pneumoperitoneum. No pneumatosis. No acute fractures identified. Nodular contour to the liver consistent with cirrhosis. This is new compared to the prior study. The spleen is normal in size. The unenhanced pancreas and adrenal glands unremarkable. No renal or ureteral stones. No hydronephrosis. Stable hypodense lesions within the right kidney. These favor cysts. Mild bilateral perinephric edema is noted. There are few small gallstones. No significant gallbladder wall thickening. Pericholecystic edema is likely due to the cirrhosis. Normal caliber abdominal aorta with mild calcified plaque. No retroperitoneal or pelvic lymphadenopathy. There is a small to moderate amount of ascites. Bladder wall thickening is likely due to underdistention. Suboptimal evaluation for bowel pathology due to the lack of intravenous and oral contrast. Colonic diverticulosis. No evidence for acute diverticulitis. No definite bowel wall thickening or obstruction. Normal appendix. IMPRESSION: 1. Cirrhotic liver with a small to moderate amount of ascites. This is new compared to the prior study. 2. Cholelithiasis. No gallbladder wall thickening. Pericholecystic edema is likely due to the cirrhosis. 3. No definite bowel wall thickening or obstruction. 4. Normal appendix. 5. Colonic diverticulosis. No evidence for acute diverticulitis. 6. Bladder wall thickening. This may be due to underdistention. Recommend correlation with urinalysis. ACT 112: Negative or not required by law. Electronically signed by: Keo Barnard M.D. 03/12/2023 12:24 PM PG Care Time/CCT Total # of Minutes Spent Total Time Spent with Patient: Total time spent is greater than 50% in coordination of care (as documented) at patient's floor/unit and/or counseling patient: Coding Level of Care Code 12841 SUB INP/OBS CARE 2/35MIN Diagnoses Acute blood loss anemia D62 Acute GI bleeding K92.2 History of stomach ulcers Z87.19 Tardive akathisia G25.71 Neuroleptic induced parkinsonism G21.11 Asthma J45.909 Schizoaffective disorder F25.9 Liver cirrhosis K74.60
[2023-03-12] MEDS: TAMSULOSIN HCL 0.4 MG CAP PO SCH (21:29)
[2023-03-12] MEDS: MELATONIN 3 MG TAB PO SCH (21:29)
[2023-03-12] MEDS: LURASIDONE HCL 20 MG TAB PO SCH (21:29)
[2023-03-12] MEDS: ZOLPIDEM TARTRATE 5 MG TAB PO SCH (21:29)
[2023-03-12] MEDS: LITHIUM CARBONATE 300 MG TAB PO SCH (21:30)
[2023-03-13] MEDS: ONDANSETRON INJ 2 MG/ML 2 ML VIAL IV PRN (07:54)
[2023-03-13] MEDS: CARBIDOPA/LEVODOPA 25/100MG TAB PO SCH (07:58)
[2023-03-13] MEDS: nadoloL 40 MG TAB PO SCH (07:59)
[2023-03-13] MEDS: FLUTICASONE/VILANTEROL 200/25MCG 14 PUFFS/INHALER INH SCH (08:00)
[2023-03-13] MEDS: FLUTICASONE PROPIONATE NA SPR 16 GM BTL NAE SCH (08:01)
[2023-03-13] MEDS ORDERED: SODIUM CHLORIDE 0.9% 250 ML IV PRN (11:07)
--- NOTE | 2023-03-13 15:41 | Discharge Summary ---
Date of Service March 13, 2023 Admission HPI Per Admitting Provider Hugo Dowd is a 67-year-old male with history of gastric ulcer who presents to the ER via ALS from home due to dark, tarry stools x 4 since midnight. Associated nausea, dizziness, diaphoresis and shortness of breath last night. He reports ongoing lightheadedness even while just lying in bed. No current abdominal pain although he did note lower abdominal pain on palpation earlier but none currently. He feels his mouth is dry as not had any liquids since 10 'o' clock. He reports taking ibuprofen for the last few days but only once a day for neck stiffness. He reports taking his pantoprazole consistently. He did not take his morning medications due to coming to the ER but took all his usual medications last night. 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 Admission Exam Per Admitting Provider Constitutional: WD/WN, vitals as above Eyes: PERRL, conjunctivae normal, anicteric sclerae ENMT: external ear and nose normal, oropharynx normal Respiratory: normal respiratory effort, lungs clear to auscultation Cardiovascular: Rate/Rhythm: regular rhythm and + tachycardic Heart Sounds: n o murmur Gastrointestinal (Abdomen): normal bowel sounds, soft, nontender, no hepatosplenomegaly Musculoskeletal: no cyanosis or clubbing, extremities motor strength 5/5 Skin: no rashes, warm and dry Neurologic: moves all extremities and awake; not confused Psychiatric: A+Ox3, euthymic affect Genitourinary: no CVA tenderness Principal Diagnosis Acute blood loss anemia due to acute GI bleed from esophageal varices and portal gastropathy Newly diagnosed liver cirrhosis Discharge Exam General: Awake, conversant Heart: S1, S2/regular rate and rhythm, no murmur rubs or gallops Lungs: Clear to auscultation bilaterally. Normal effort Abdomen: Soft/nondistended. Upper abdomen mildly tender without rebound, rigidity or guarding. No hepatosplenomegaly Extremities: No clubbing/cyanosis. No edema Behavior: Appropriate, cooperative Discharge Data Allergies Allergy/AdvReac Type Severity Reaction Status Date / Time prednisone AdvReac Intermediate GET Verified 03/11/23 13:53 AGGRESIVE, ANGRY Consultations 03/10/23 13:20 ED Decision to Admit Stat 03/10/23 17:09 Consult Gastroenterology Routine Procedures Performed Operation Date: 03/11/23 19:45 Actual Procedures p Esophagogastroduodenoscopy - Arminda Barnard Jr, MD Ordered Studies 03/12/23 11:31 CT abd pelvis wo con Stat Hospital Course (1) Acute blood loss anemia: Hemoglobin 6.7 on admission from previous baseline 12.8 in February 2022 (1 year ago) Suspect from acute GI bleed (see below) EGD showed esophageal varices GI bleed was most likely due to variceal bleeding Patient was complaining of dizziness upon standing and thus another unit was transfused today prior to discharge since he is symptomatic with his anemia. (2) Acute GI bleeding: EGD completed No peptic ulcer disease seen Esophageal varices and portal gastropathy seen Protonix discontinued Patient has been started on solid diet Nadolol started CT abdomen shows nodular cirrhotic liver. This is a surprise to the patient. He was not aware of a diagnosis of liver cirrhosis. (3) History of stomach ulcers: Reports compliance with pantoprazole 40mg PO daily as outpatient (4) Tardive akathisia: Secondary to [place] (5) Neuroleptic induced parkinsonism: Continue [place] and Sinemet when ok to take PO meds (6) Asthma: No acute exacerbation Continue outpatient maintenance inhalers (7) Schizoaffective disorder: Continue [place] and Latuda [place] level rather low [place] resumed (8) Liver cirrhosis: EGD showed esophageal varices and portal gastropathy Abdominal CT showed liver cirrhosis and mild to moderate ascites Patient complains of mild abdominal discomfort. Could be secondary to ascites related discomfort. Did not require tramadol today. Will defer paracentesis for the time being since the pain has resolved. Patient has a history of hepatitis C This will need to be followed outpatient by GI. Patient has been advised to follow-up with GI outpatient Plan Discharge today Spoke to on the phone in detail. Total Time Total Time Spent Total Time Spent (In Minutes): 35 Discharge Plan Discharge Items Patient Disposition: Home - Self-Care Reason For Visit: ACUTE GI BLEED, ACUTE BLOOD LOSS ANEMIA Discharge Diagnosis: Acute blood loss anemia due to acute GI bleed from esophageal varices and portal gastropathy Newly diagnosed liver cirrhosis Activity: Resume your previous activity Non-emergency contact: Primary Care Provider Call non-emergency contact if: you have any medication questions and your sym ptoms worsen Follow-up/Referrals: Laci KearnsNadeen, [Physician] - 03/19/23 11:00 am (Your Appointment is with Claudia BARAKAT) Jarett Holley [Primary Care Provider] - Diet: Low Sodium (2gm) Addtl Attending Provider Instructions: Advised to follow-up with PCP in 1 week Advised to follow-up with GI in 1 month (you will need a gastroenter ologist/antenna specialist, now that you have been diagnosed with liver cirrhosis) Pending Studies at Discharge: No Stand-Alone Forms: [facility] Medications and DC Order Prescriptions: New nadolol 40 mg Tablet 20 mg PO QAM 30 Days Qty: 15 0RF tramadol 50 mg Tablet 50 mg PO Q4H PRN (Reason: pain) Qty: 14 0RF Continued tamsulosin 0.4 mg capsule 0.4 mg PO QPM Latuda 80 mg tablet 80 mg PO QPM medical marijuana 1 dose PO UD PRN (Reason: ANXIETY AND SLEEP) Patient Comments: PT STATES DOES VAPE/PO FORM carbidopa-levodopa 25-100 mg tablet 1 tab PO TID 90 Days Qty: 270 1RF trihexyphenidyl 2 mg tablet 1 mg PO DAILY Qty: 45 1RF Rx Instructions: give with food (meal/snack) pantoprazole [Protonix] 40 mg Tablet,Delayed Release (Dr/Ec) 40 mg PO QAM diphenhydramine HCl 25 mg Tablet 25 mg PO HS budesonide-formoterol [Symbicort] 160-4.5 mcg/actuation Hfa Aerosol Inhaler 2 puff INHALATION BID melatonin 5 mg Capsule 5 mg PO HS fluticasone propionate 50 mcg/actuation spray,suspension 1 spray INTRANASAL BID Patient Comments: EACH NOSTRIL zinc 50 mg Tablet 50 mg PO QAM lithium carbonate 300 mg Tablet 300 mg PO HS cholecalciferol (vitamin D3) [Vitamin D3] 50 mcg (2,000 unit) Tablet 50 mcg PO QAM Discontinued hydrochlorothiazide 12.5 mg capsule 12.5 mg PO QAM lisinopril 40 mg Tablet 40 mg PO QAM Discharge Orders: Discharge Order (Routine); Ordered 03/13/23 Ordered By: Janet Torres Admission Data Admit Date/Time: 12/17/23 13:45 Attending Provider: Janet Torres Admit Provider: Vishnu Shaw Primary Care Provider: Jarett Holley Other Providers: Vishnu Shaw; Arminda Barnard Jr Other Interventions: Discharge Summary Assessment (RN) Last Done: 03/11/23 15:08 Coding Level of Care Code 29435 INP/OBS DISCH >30 MIN Diagnoses Acute blood loss anemia D62 Acute GI bleeding K92.2 History of stomach ulcers Z87.19 Tardive akathisia G25.71 Neuroleptic induced parkinsonism G21.11 Asthma J45.909 Schizoaffective disorder F25.9 Liver cirrhosis K74.60
== END 2023-03-13 17:10 | disposition home or self-care (01) | DRG 432 ==
LOC: ED 12:07 → 4W 13:45 → SUATTDRO 13:45 → 4W 15:55